=== PATIENT | female | born 1935 | race Caucasian/White ===

== ENCOUNTER 2016-12-16 11:58 | Inpatient (IN) ==
--- NOTE | 2016-12-16 12:24 | Emergency Department Report ---
SOB HPI - General Chief Complaint: Shortness of Breath/Dyspnea Stated Complaint: poss pneumonia Time Seen by Provider: 12/16/16 12:15 Source: patient, family Mode of arrival: wheelchair Limitations: no limitations - History of Present Illness Patient was transferred from [facility] where she presented this morning with shortness of air. Oxygen saturations were noted to be in the mid 80s on patient's baseline 2 L of nasal cannula. She has had some generalized respiratory issues for the last 2 weeks. She does have chronic respiratory insufficiency secondary to severe scoliosis. Patient does deny any history of COPD or asthma. Patient is brought in by her daughter and does appear dyspneic. Saturations on 4 L per nasal cannula are in upper 80s. Patient was placed on 5 L per nasal cannula and allowed to sit at the side of the bed and oxygen saturations were mid 90s Patient is visiting her daughter who lives in [place] and is from . She has been in [place] visiting her son and did just fly in last night. She does report productive cough ; yellow sputum but also reports occasional blood in her sputum. Denies pleuritic chest pain or recent pain or swelling in her legs. No history of DVT or PE. She denies chest pain but does complain of SOA and chest tightness. Patients lead mechanical engineer is Dr Lee in [place]. She denies any hx of [place] or stents but states she has by history a fast heart rate that is controlled with medication. Patient is very short stature and has pronounced spinal curvature due to her scoliosis. Patient states due to her scoliosis, she can either lay flat on the bed or sit completely upright, but remaining in bed with the head elevated is not tolerated. Denies fever or chills. Temerature here is 99.3. Patient states she did just finish 10 days of keflex on Wednesday that she was taking due to a URI. Complaint: shortness of breath, cough Onset (ago): week(s) (2) - Related Data Home Medications Medication Instructions Recorded Confirmed Furosemide [Lasix] 10 - 20 mg PO DAILY PRN 12/16/16 12/16/16 Hydrocodone/APAP 10325 [[place] 1 tab PO Q6H PRN 12/16/16 12/16/16 10/325] Levothyroxine Sodium 150 mcg PO ACB 12/16/16 12/16/16 dilTIAZem HCl [Diltiazem ER] 180 mg PO BID 12/16/16 12/16/16 Allergies Allergy/AdvReac Type Severity Reaction Status Date / Time diphenhydramine Allergy Verified 12/16/16 12:16 [From Benadryl] erythromycin base Allergy Swelling Verified 12/16/16 12:16 of Lip/Tongue/Throat Penicillins Allergy Rash Verified 12/16/16 12:16 Tetracyclines Allergy Rash Verified 12/16/16 12:16 Review of Systems All systems: reviewed and negative except as stated Constitutional: Reports: as per HPI, weakness. Denies: fever, chills Eyes: Denies: eye pain, eye discharge ENT: Denies: ear pain, throat pain Cardiovascular: Reports: as per HPI, dyspnea on exertion Respiratory: Reports: as per HPI, cough, dyspnea, wheezes, hemoptysis Gastrointestinal: Reports: as per HPI. Denies: nausea, vomiting Genitourinary: Denies: urgency, dysuria Musculoskeletal: Reports: as per HPI, back pain, other (severe scoliosis ). Denies: joint swelling Neurological: Denies: headache, weakness, numbness, paresthesias Endocrine: Denies: heat or cold intolerance Hematological/Lymphatic: Denies: easy bleeding, easy bruising Allergic/Immunologic: Denies: facial swelling, urticaria PFSH Patient Stated Medical History Bronchitis Yes Pneumonia Yes Clinic Medical History Community acquired pneumonia (Acute Medical) Physical Exam - Limitations Limitations: no limitations - General General appearance: alert - Normal Exams: Head:: Normocephalic without trauma Eyes:: Pupils are PERRLA w/ EOMI, No scleral icterus, irritation, or foreign bodies noted ENMT:: No facial trauma, nasal exudates, pharyngeal erythema, or exudates are noted Neck:: Full range of motion, without adenopathy, JVD, bruits or thyromegaly Cardiovascular:: Regular rate and rhythm, without murmur or gallop, Pulses 2+ all extremities, capillary refill, <2 seconds all extremities Abdomen:: Bowel sounds positive, soft, non-tender, non-distended Lymphatic:: No lymphadenopathy Integumentary:: No rashes, hives Neurological:: Patient is alert, and oriented, cranial nerves, motor/sensory/ cerebellar, exams w/o gross deficits Psychiatric:: Patient exhibits, appropriate attention, emotion and affect - Expanded Respiratory Exam Location: Left: wheezes, rhonchi, Right: wheezes, Upper: rhonchi - Cardiovascular Cardiovascular exam: Present: regular rate Course - Consultations Consultation #1: Dr Knowles Time: 14:44 (will admit ) Vital Signs Pulse Oximetry 88 L 12/16/16 12:00 Temperature 99.3 F 12/16/16 12:16 Pulse Rate 75 12/16/16 14:03 Respiratory Rate 24 12/16/16 13:05 Blood Pressure 113/59 12/16/16 14:03 Pulse Oximetry 97 12/16/16 14:12 Shortness of Breath/Dyspnea - MDM Narrative Medical decision making narrative: Patients CT scan ruled out PE ; did dx left upper lobe pneumonia. Patient is tolerating oxygen at 4L/NC with sats 94% . - Differential Diagnosis Likely: congestive heart failure, community acquired pneumonia, pulmonary embolism - Medical Records Attestation: I reviewed the patient's medical records. - Lab Data Attestation: I reviewed the patient's lab results. Result diagrams: 12/16/16 12:44 12/16/16 12:44 Lab Results 12/16/16 12/16/16 12/16/16 Range/Units 12:44 12:44 12:44 WBC 7.7 (4.5-11.0) T/MM3 RBC 4.21 (4.00-5.20) M/MM3 Hgb 10.3 L (12-16) GM/DL Hct 36.3 (36-46) % MCV 86.2 (80-100) UM3 MCH 24.5 L (26-34) UUG MCHC 28.4 L (31-37) GM/DL RDW Std Deviation 43.7 (36.9-50.2) FL Plt Count 206 (130-400) T/MM3 MPV 10.9 (9.4-12.4) UM3 Immature Gran % (Auto) 0.3 (0.0-0.5) % Neut % (Auto) 77.4 H (33-66) % Lymph % (Auto) 13.0 L (23-45) % [place] % (Auto) 8.8 (0-9.0) % Eos % (Auto) 0.4 (0-4) % Baso % (Auto) 0.1 (0-2) % Neut # (Auto) 6.0 (1.8-7.7) T/MM3 Lymph # (Auto) 1.0 (1-4.8) T/MM3 [place] # (Auto) 0.7 (0-0.8) T/MM3 Eos # (Auto) 0.0 (0-0.5) T/MM3 Baso # (Auto) 0.0 (0-0.2) T/MM3 Abs Immat Gran (auto) 0.02 (0.00-0.03) T/MM3 D-Dimer 439 H (0-230) NG/ML ABG pH (7.350-7.450) ABG pCO2 (34-45) MMHG ABG pO2 (80-100) MMHG ABG HCO3 (22-26) MEQ/L ABG Total CO2 (23-27) MEQ/L ABG O2 Saturation (95.0-98.0) % ABG Base Excess (-2.0-2.0) MMOL/L O2 Delivery Method FiO2 (liters per min) Turbidity < 20 (0-20) Sodium 145 H (134-144) MEQ/L Potassium 4.4 (3.6-5) MEQ/L Chloride 97 L (98-107) MEQ/L Carbon Dioxide 42 H* (22-30) MEQ/L Anion Gap 6 (5-15) MEQ/L BUN 13.0 (7-17) MG/DL Creatinine 0.5 L (0.7-1.2) MG/DL GFR Calculation 118 BUN/Creatinine Ratio 26 (6-26) RATIO Glucose 109 (65-110) MG/DL Calculated Osmolality 280 (261-280) MOSM/KG Calcium 9.3 (8.4-10.2) MG/DL Total Bilirubin 0.30 (0.20-1.30) MG/DL Icterus Index < 2 (0-7) AST 24 (14-36) U/L ALT 49 (9-52) U/L Alkaline Phosphatase 63 (38-126) U/L Troponin I < 0.012 (0-0.12) ng/ml B-Natriuretic Peptide 354 H (0-175) pg/mL Total Protein 6.7 (6.3-8.2) G/DL Albumin 3.7 (3.5-5.0) G/DL Globulin 3.0 (2.4-3.6) G/DL Albumin/Globulin Ratio 1.2 (1.1-2.2) RATIO Plasma Lactate 0.8 (0.6-2.2) MMOL/L Procalcitonin NG/ML Specimen Hemolysis < 15 (0-25) 12/16/16 12/16/16 Range/Units 12:55 12:57 WBC (4.5-11.0) T/MM3 RBC (4.00-5.20) M/MM3 Hgb (12-16) GM/DL Hct (36-46) % MCV (80-100) UM3 MCH (26-34) UUG MCHC (31-37) GM/DL RDW Std Deviation (36.9-50.2) FL Plt Count (130-400) T/MM3 MPV (9.4-12.4) UM3 Immature Gran % (Auto) (0.0-0.5) % Neut % (Auto) (33-66) % Lymph % (Auto) (23-45) % [place] % (Auto) (0-9.0) % Eos % (Auto) (0-4) % Baso % (Auto) (0-2) % Neut # (Auto) (1.8-7.7) T/MM3 Lymph # (Auto) (1-4.8) T/MM3 [place] # (Auto) (0-0.8) T/MM3 Eos # (Auto) (0-0.5) T/MM3 Baso # (Auto) (0-0.2) T/MM3 Abs Immat Gran (auto) (0.00-0.03) T/MM3 D-Dimer (0-230) NG/ML ABG pH 7.380 (7.350-7.450) ABG pCO2 78 H* (34-45) MMHG ABG pO2 126 H (80-100) MMHG ABG HCO3 46 H (22-26) MEQ/L ABG Total CO2 48.5 H (23-27) MEQ/L ABG O2 Saturation 99.0 H (95.0-98.0) % ABG Base Excess 17.2 H (-2.0-2.0) MMOL/L O2 Delivery Method Nasal cannula, liter FiO2 (liters per min) 5 Turbidity (0-20) Sodium (134-144) MEQ/L Potassium (3.6-5) MEQ/L Chloride (98-107) MEQ/L Carbon Dioxide (22-30) MEQ/L Anion Gap (5-15) MEQ/L BUN (7-17) MG/DL Creatinine (0.7-1.2) MG/DL GFR Calculation BUN/Creatinine Ratio (6-26) RATIO Glucose (65-110) MG/DL Calculated Osmolality (261-280) MOSM/KG Calcium (8.4-10.2) MG/DL Total Bilirubin (0.20-1.30) MG/DL Icterus Index (0-7) AST (14-36) U/L ALT (9-52) U/L Alkaline Phosphatase (38-126) U/L Troponin I (0-0.12) ng/ml B-Natriuretic Peptide (0-175) pg/mL Total Protein (6.3-8.2) G/DL Albumin (3.5-5.0) G/DL Globulin (2.4-3.6) G/DL Albumin/Globulin Ratio (1.1-2.2) RATIO Plasma Lactate (0.6-2.2) MMOL/L Procalcitonin 0.13 NG/ML Specimen Hemolysis (0-25) Disposition Clinical Impression: Community acquired pneumonia Disposition: 02 To [facility] [place] Acute Care Condition: Stable Prescriptions: No Action dilTIAZem HCl [Diltiazem ER] 180 mg PO BID Furosemide [Lasix] 10 - 20 mg PO DAILY PRN PRN Reason: Prn Orders Hydrocodone/APAP 10/325 [[place] 10/325] 1 tab PO Q6H PRN PRN Reason: Pain Levothyroxine Sodium 150 mcg PO ACB Time of Disposition: 14:38 - Seen By: estela
[2016-12-16] MEDS ORDERED: ALBUTEROL/IPRATROPIUM 2.5mg-0.5mg/3ml NEB AEROSOL ONE (12:38)
[2016-12-16] MEDS ORDERED: SALINE FLUSH 10ml SYRINGE ONE ×2 (13:39→13:52)
[2016-12-16] MEDS ORDERED: NS 100 ML ONE (13:39)
[2016-12-16] MEDS ORDERED: IOHEXOL 350mg/ml 75ml INJECTION ONE (13:39)
[2016-12-16] MEDS ORDERED: IOHEXOL 350mg/ml 50ml INJECTION ONE (13:51)
--- OUTSIDE RECORDS SUMMARY | 2016-12-16 14:02 | External Medical Summary ---
:1935 Author Organization eClinicalWorks Care Team Providers Name Role Phone Bijan Alvarez Provider Role Unavailable Allergies No Known Allergies Problems Problem Type Condition Code Onset Dates Condition Status Assessment Left thyroid nodule E04.1 Active Medications Medication Code Code Instructions Start End Status Dosage System Date Date [place] 3 [facility] [address]-01 1000 MG Orally 1 capsule 950 [place] [address]-40 12.5 MG Orally 1 tablet ER 82-11 Once a day [place] [address]-90 75 MCG Orally 1 tablet Sodium 55-00 [place] [address]-10 10 MG Orally 1 tablet 57-30 Three times a day PRN Calcium + [place] [address]-46 600-200 MG-UNIT not 56-52 [place] [address]-43 10-325 MG Orally 1 tablet nophen 16-30 every 6 hrs as needed Diltiazem CD [facility] 737[address]-64 180 MG Orally 1 capsule 84-10 Two times daily Procedures Procedure Coding System Code Date US EXAM OF HEAD AND NECK CPT-4 02801 Jan 23, 2015 Results No Known Results Summary Purpose eClinicalWorks Submission
--- OUTSIDE RECORDS SUMMARY | 2016-12-16 14:02 | External Medical Summary ---
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 Assessment Thyroid cancer C73 Active Medications Medication Code Code Instructions Start End Date Status Dosage System Date Calcium + D3 [facility] 546[address]-58 600-200 MG-UNIT not 56-52 Orally defined [place] [address]-40 1000 MG Orally 1 capsule 950 [place] [address]-56 10-325 MG Orally 1 tablet minophen 16-30 every 6 [place] [address]-78 100 MCG Orally 1 tablet Sodium 09-01 Once a day Diltiazem CD [facility] [address]-43 180 MG Orally 1 capsule 84-10 [place] [address]-44 20 MG Orally 1 tablet 97-25 Once a day Procedures Procedure Coding System Code Date Office Visit, Est Pt., Level 4 CPT-4 84942 August 22, 2015 [facility] MED/CURRENT MED MERGE CPT-4 1111F August 22, 2015 Billed by outside source CPT-4 NOBLL August 22, 2015 Vital Signs Date/Time: August 22, 2015 Blood Pressure Systolic 164 mm Hg Weight 175.2 lbs Height 59 in Oximetry 96 % Respiratory Rate 20 /min Cardiac Monitoring Heart Rate 76 /min Blood Pressure Diastolic 96 mm Hg BMI 35.38 Index Results No Known Results Summary Purpose eClinicalWorks Submission
--- OUTSIDE RECORDS SUMMARY | 2016-12-16 14:02 | External Medical Summary ---
:1935 Author Organization [facility] Address [address] [place] [phone] Care Team Providers Name Role Phone Bijan Alvarez Unavailable Unavailable PROBLEMS Type Condition ICD9-CM Code [id number] Code Onset Condition SNOMED Code Dates Status Problem Hypothyroidism E03.9 Active 35116992 Problem Thyroid cancer C73 Active 356366190 Assessment Hypothyroidism E03.9 Apr, Active 73679215 2017 ALLERGIES Unknown Allergies SOCIAL HISTORY No smoking Hx information available PLAN OF CARE VITAL SIGNS MEDICATIONS Medication Instructions Dosage Frequency Start End Duration Status Date Date [place] 3 1000 MG Orally Once a 1 capsule 24h Active day Furosemide 20 MG Orally Once a 1 tablet Active day as needed Levothyroxine Orally once a 1 tablet 24h 30 days Active Sodium 125 MCG day Once a day Orally 30 days Calcium + D3 Active 600-200 MG-UNIT Hydrocodone-Aceta Orally every 6 1 tablet as 6h Active minophen 10-325 hrs needed MG Diltiazem CD 180 Orally Two times 1 capsule Active MG daily RESULTS No Results PROCEDURES No Known procedures IMMUNIZATIONS No Known Immunizations
--- OUTSIDE RECORDS SUMMARY | 2016-12-16 14:02 | External Medical Summary ---
:1935 Author Organization eClinicalWorks Care Team Providers Name Role Phone Bijan Alvarez Provider Role Unavailable Allergies No Known Allergies Problems Problem Type Condition Code Onset Dates Condition Status Assessment Thyroid cancer C73 Active Assessment Hypothyroidism E03.9 Active Medications Medication Code Code Instructions Start End Date Status Dosage System Date Hydrocodone-Aceta [facility] 85685-35 10-325 MG Orally 1 tablet minophen 16-30 every 6 hrs as needed [place] 3 [facility] [address]-47 1000 MG Orally 1 capsule 950 Once a day Calcium + D3 [facility] 16971-92 600-200 MG-UNIT not 56-52 Orally defined Diltiazem CD [facility] 028[address]-57 180 MG Orally 1 capsule 84-10 Two times daily Levothyroxine [facility] 27934-91 112 MCG Orally 1 tablet Sodium 11-01 Once a day Furosemide [facility] 12714-99 20 MG Orally 1 tablet 97-25 Once a day Results No Known Results Summary Purpose eClinicalWorks Submission
--- OUTSIDE RECORDS SUMMARY | 2016-12-16 14:02 | External Medical Summary ---
:1935 Author Organization [facility] Address [address] [place] [phone] Care Team Providers Name Role Phone Bijan Alvarez Unavailable Unavailable PROBLEMS Type Condition ICD9-CM Code LCB05-DU Code Onset Condition SNOMED Code Dates Status Problem Hypothyroidism E03.9 Active 83846569 Problem Thyroid cancer C73 Active 708634599 Assessment Hypothyroidism E03.9 Apr, Active 25472218 2017 ALLERGIES Unknown Allergies SOCIAL HISTORY No smoking Hx information available PLAN OF CARE VITAL SIGNS MEDICATIONS Medication Instructions Dosage Frequency Start End Duration Status Date Date Diltiazem CD 180 Orally Two times 1 capsule Active MG daily Levothyroxine Orally once a 1 tablet 24h 30 days Active Sodium 125 MCG day Once a day Orally 30 days Hydrocodone-Aceta Orally every 6 1 tablet as 6h Active minophen 10-325 hrs needed MG Calcium + D3 Active 600-200 MG-UNIT [place] 3 1000 MG Orally Once a 1 capsule 24h Active day Furosemide 20 MG Orally Once a 1 tablet Active day as needed RESULTS No Results PROCEDURES No Known procedures IMMUNIZATIONS No Known Immunizations
--- OUTSIDE RECORDS SUMMARY | 2016-12-16 14:02 | External Medical Summary ---
:1935 Author Organization [facility] Address [address] [phone] Care Team Providers Name Role Phone Bijan Alvarez Unavailable Unavailable PROBLEMS Type Condition ICD9-CM LWK46-WT Onset Condition SNOMED Code Code Code Dates Status Assessment Thyroid cancer C73 Apr, Active 700948731 2017 Assessment Post-surgical E89.0 Apr, Active 20158734 hypothyroidism 2017 Assessment Status post E89.0 Apr, Active 12155599 thyroidectomy 2017 ALLERGIES Substance Reaction Event Type Date Status Tetracycline HCl anaphylaxis Drug Allergy Apr, Active Sulfacet-R anaphylaxis Drug Allergy Apr, Active Penicillin G Benzathine anaphylaxis Drug Allergy Apr, Active Erythromycin anaphylaxis Drug Allergy Apr, Active Benadryl anaphylaxis Drug Allergy Apr, Active SOCIAL HISTORY No smoking Hx information available PLAN OF CARE Activity Details Pending Test T4, FREE 48502 Pending Test TSH 20865 Pending Test THYROID CANCER MONITORING (THYROGLOBULIN) 81851 6 Months,Reason: VITAL SIGNS Height 59 in 2016-04-20 Weight 177.6 lbs 2016-04-20 Heart Rate 82 /min 2016-04-20 Respiratory Rate 22 /min 2016-04-20 BMI 35.87 kg/m2 2016-04-20 Blood pressure systolic 150 mm Hg 2016-04-20 Blood pressure diastolic 80 mm Hg 2016-04-20 MEDICATIONS Medication Instructions Dosage Frequency Start End Duration Status Date Date Diltiazem CD 180 Orally Two times 1 capsule Active MG daily [place] 3 1000 MG Orally Once a 1 capsule 24h Active day Hydrocodone-Aceta Orally every 6 1 tablet as 6h Active minophen 10-325 hrs needed MG Furosemide 20 MG Orally Once a 1 tablet Active day as needed Levothyroxine 1 tablet 30 Active Sodium 112 MCG Once a day Orally 30 days Calcium + D3 Active 600-200 MG-UNIT RESULTS No Results PROCEDURES Procedure Date Ordered Related Diagnosis Body Site Billed by outside source April 20, 2016 Office Visit, Est Pt., Level 3 April 20, 2016 [facility] MED/CURRENT MED MERGE April 20, 2016 IMMUNIZATIONS No Known Immunizations
--- OUTSIDE RECORDS SUMMARY | 2016-12-16 14:02 | External Medical Summary ---
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 Assessment Hypothyroidism E03.9 Active Medications Medication Code Code Instructions Start End Status Dosage System Date Date Calcium + D3 [facility] 46680-29 600-200 MG-UNIT not 56-52 Orally defined Cyclobenzaprine HCl [facility] 35627-52 10 MG Orally 1 tablet 57-30 Three times a day PRN Diltiazem CD [facility] 912[address]-42 180 MG Orally 1 capsule 84-10 Two [place] [address]-78 10-325 MG Orally 1 tablet nophen 16-30 every 6 hrs [place] [address]-77 12.5 MG Orally 1 tablet ER 82-11 Once a day at bedtime as needed [place] 3 [facility] 11[address]-26 1000 MG Orally 1 capsule 950 Once a day Levothyroxine [facility] 048[address]-36 75 MCG Orally 1 tablet Sodium 55-00 Once a day Procedures Procedure Coding System Code Date Office Visit, New Pt., Level 4 CPT-4 78633 Nov 30, 2014 [facility] MED/CURRENT MED MERGE CPT-4 1111F Nov 30, 2014 Billed by outside source CPT-4 NOBLL Nov 30, 2014 Vital Signs Date/Time: Nov 30, 2014 Blood Pressure Systolic 122 mm Hg Weight 164.8 lbs Height 59 in BMI 33.28 Index Cardiac Monitoring Heart Rate 76 /min Blood Pressure Diastolic 60 mm Hg Results Name Result Date Reference Range Unit Abnormality Flag Thyroid-Stimulating Hormone (TSH) and Free T4 [id number] Summary Purpose eClinicalWorks Submission
--- OUTSIDE RECORDS SUMMARY | 2016-12-16 14:02 | External Medical Summary | Referral Summary ---
:1935 Author Organization [facility] Address [address] [place] [address] Care Team Providers Name Role Phone Timothy Garcia Primary Care Physician Encounter VC Date(s): 07/12/15 - 07/12/15 [facility] [address] [place] [address] [phone] Discharge Disposition: 01-Home or Self Care Attending Physician: Justin Duong MD Vital Signs No data available for this section Problem List Condition Effective Dates Status Health Status Informant Obesity(Confirmed) Active patient Allergies, Adverse Reactions, Alerts Substance Reaction Severity Status diphenhydrAMINE Active erythromycin Active ethanol Active penicillin Active sulfamethoxazole Active zinc acetate Active Medications Ambien CR 12.5 mg oral tablet, extended release 12.5 mg 1 tabs, Oral, Bedtime (once a day), as needed for sleep, 0 Refill(s) Start Date: 09/21/14 Status: Orderedcyclobenzaprine 10 mg oral tablet 10 mg 1 tabs, Oral, TID, as needed for spasm, # 30 tabs, 0 Refill(s) Start Date: 09/21/14 Status: Ordereddiltiazem 0 Refill(s) Start Date: 09/21/14 Status: Orderedfurosemide 20 mg oral tablet mg tabs, Oral, Daily, 0 Refill(s) Start Date: 09/21/14 Status: OrderedHYDROcodone-ibuprofen 10 mg-200 mg oral tablet tabs, Oral, q4hr, 0 Refill(s) Start Date: 09/21/14 Status: Orderedlevothyroxine 75 mcg (0.075 mg) oral tablet mcg tabs, Oral, Daily, 0 Refill(s) Start Date: 8/7/15 Status: Orderedtemazepam Oral, Bedtime (once a day), 0 Refill(s) Start Date: 09/21/14 Status: Ordered Results No data available for this section Immunizations No data available for this section Procedures No data available for this section Social History Social History Type Response Smoking Status Never smoker Assessment and Plan No data available for this section
--- OUTSIDE RECORDS SUMMARY | 2016-12-16 14:02 | External Medical Summary | Referral Summary ---
:1935 Author Organization [facility] Address [address] [place] [address] Care Team Providers Name Role Phone Timothy Garcia Primary Care Physician Encounter [facility] [phone] Date(s): 09/21/14 - 09/21/14 [facility] [address] [place] [address] - us Discharge Diagnosis: Adult hypothyroidism Discharge Diagnosis: Thyroid nodule Discharge Disposition: -Home or Self Care Attending Physician: Marilee Martinez MD Admitting Physician: Marilee Martinez MD Referring Physician: Marilee Martinez MD Vital Signs Most recent to oldest [Reference Range]: 1 Peripheral Pulse Rate [60-100 bpm] 84 bpm (09/21/14 1:15 PM) Blood Pressure [90-140/60-90 mmHg] 104/64 mmHg (09/21/14 1:15 PM) Problem List Condition Effective Dates Status Health [...] Daily, 0 Refill(s) Start Date: 09/21/14 Status: Orderedtemazepam Oral, Bedtime (once a day), 0 Refill(s) Start Date: 09/21/14 Status: Ordered Results Chemistry Most recent to oldest [Reference Range]: 1 T4 Free [0.7-1.5 ng/dL] 1.0 ng/dL (09/21/14 1:49 PM) TSH [0.35-4.94] 3.18 (09/21/14 1:49 PM) Immunizations No data available for this section Procedures No data available for this section Social History Social History Type Response Smoking Status Never smoker Assessment and Plan Extracted from: Title: Ambulatory Patient Education Author: Marilee Martinez MD Date: 09/22/14 Family Medicine Hypothyroidism The thyroid is a large gland located in the lower front of your neck. The thyroid gland helps control metabolism. Metabolism is how your body handles food. It controls metabolism with the hormone thyrox ine. When this gland is underactive (hypothyroid), it produces too little hormone. CAUSES These include: Absence or destruction of thyroid tissue. Goiter due to iodine deficiency. Goiter due to medications. Congenital defects (since ). Problems with the pituitary. This causes a lack of TSH (thyroid stimulating hormone). 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 SYMPTOMS Lethargy (feeling as though you have no energy) Cold intolerance Weight gain (in spite of normal food intake) Dry skin Coarse hair Menstrual irregularity (if severe, may lead to infertility) Slowing of thought processes Cardiac problems are also caused by insufficient amounts of thyroid hormone. Hypothyroidism in the is cretinism, and is an extreme form. It is important that this form be treated adequately and immediately or it will lead rapidly to retarded physical and mental development. DIAGNOSIS To prove hypothyroidism, your caregiver may do blood tests and ultrasound tests. Sometimes the signs are hidden. It may be necessary for your caregiver to watch this illness with blood tests either before or after diagnosis and treatment. TREATMENT Low levels of thyroid hormone are increased by using synthetic thyroid hormone. This is a safe, effective treatment. It usually takes about four weeks to gain the full effects of the medication. After y ou have the full effect of the medication, it will generally take another four weeks for problems to leave. Your caregiver may start you on low doses. If you have had heart problems the dose may be grad ually increased. It is generally not an emergency to get rapidly to normal. HOME CARE INSTRUCTIONS Take your medications as your caregiver suggests. Let your caregiver know of any medications you are taking or start taking. Your caregiver will help you with dosage schedules. As your condition improves, your dosage needs may increase. It will be necessary to have continuing blood tests as suggested by your caregiver. Report all suspected medication side effects to your caregiver. SEEK MEDICAL CARE IF: Seek medical care if you develop: Sweating. Tremulousness (tremors). Anxiety. Rapid weight loss. Heat intolerance. Emotional swings. Diarrhea. Weakness. SEEK IMMEDIATE MEDICAL CARE IF: You develop chest pain, an irregular heart beat (palpitations), or a rapid heart beat. MAKE SURE YOU: Understand these instructions. Will watch your condition. Will get help right away if you are not doing well or get worse. Document Released: 02/01/2006 Document Revised: 04/25/2012 Document Reviewed: 09/21/2008 ExitCare Patient Information 2015 [place]. This information is not intended to replace advice given to you by your health care provider. Make sure you discuss any questions you have with your health care provider. No follow up information was provided. Extracted from: Title: Consult Note Author: Marilee Martinez MD Date: 09/21/14 Assessment/Plan Adult hypothyroidism discussed labs with patient will check tfts today will adjust levothyroxine accordingly thyroid nodule s/p benign biopsy in 2013 will repeat u/s now ( patient to get it done in [place] where she lives) will decide on further management accordingly
--- OUTSIDE RECORDS SUMMARY | 2016-12-16 14:02 | External Medical Summary | Continuity of Care Document ---
:1935 Author Organization [facility] Allergies Active Description Code Type Severity Reaction Onset Reported/ Identified Relationship Clinical to Patient Status Yes diphenhydram Drug Moderate 06/14/2009 ine HCl Aller gy Yes diphenhydram F0000 Drug Moderate N/A 06/14/2009 ine HCl 87193 Aller gy Yes Erythromycin Drug Moderate 06/14/2009 Base Aller gy Yes Erythromycin F0060 Drug Moderate N/A 06/14/2009 Base 60989 Aller gy Yes Penicillins Drug Moderate 06/14/2009 Aller gy Yes Penicillins F0010 Drug Moderate N/A 06/14/2009 35176 Aller gy Yes Sulfa Drug Moderate 06/14/2009 (Sulfonamide Aller Antibiotics) gy Yes Sulfa F0010 Drug Moderate N/A 06/14/2009 (Sulfonamide 77664 Aller Antibiotics) gy Yes Tetracycline Drug Moderate 06/14/2009 Aller gy Yes Tetracycline F0060 Drug Moderate N/A 06/14/2009 98143 Aller gy Yes erythromycin eryth Drug Mild TONGUE 05/10/2015 base romyc Aller SWELLS in gy AND RASH base Yes PENCILLIN PENCI Drug Mild RASH AND 05/10/2015 LLIN Aller TONGUE gy SWELLS Yes tetracycline tetra Drug Mild RASH AND 05/10/2015 cycli Aller TONGUE ne gy SWELLED Yes Sulfa Sulfa Drug Unknown . 05/10/2015 (Sulfonamide (Sulf Aller Antibiotics) onami gy de Antib iotic s) Medications Problems Procedures Results Test Result Range PARATHYROID HORMONE (INTACT) - 05/13/15 10:49 PARATHYROID HORMONE (INTACT) 56 pg/mL 14-85 Encounters ACCT Visit Discharge Status Pt. Type Provider Facility Loc./Unit Complaint No. Date/Time [id number] 05/13/2015 05/14/2015 DIS Outpatient Yue STOUT, Morte[facility] GroveOPRA [id number] 05:01:00 14:58:00 [facility] [id number] 10/28/2014 10/28/2014 CLS Outpatient Jes Perry HMG.WALKIN [id number] 12:00:00 23:59:59 Umair Bauer [facility] [id number] 03/19/2014 03/19/2014 CLS Outpatient Jesseemmanuel Jes IMG.HO.RAD [id number] 14:31:00 23:59:59 Robert STOUT [facility] [id number] 05/23/2012 05/23/2012 CLS Outpatient Jes MasseyELEY [id number] 11:36:00 23:59:59 Rachelle Briscoe [facility] [id number] 06/05/2009 06/05/2009 CLS Outpatient Trudy STOUT, Jes TANNERIN [id number] 10:15:00 23:59:59 Raj Dominguez [facility]
--- OUTSIDE RECORDS SUMMARY | 2016-12-16 14:02 | External Medical Summary ---
:1935 Author Organization [facility] Address [address] [place] [id number] Care Team Providers Name Role Phone Bijan Alvarez Unavailable Unavailable PROBLEMS Type Condition ICD9-CM Code [id number] Code Onset Condition SNOMED Code Dates Status Problem Hypothyroidism E03.9 Active 92256867 Problem Thyroid cancer C73 Active 197266046 ALLERGIES No Information SOCIAL HISTORY Never Assessed PLAN OF CARE VITAL SIGNS MEDICATIONS Medication Instructions Dosage Frequency Start End Duration Status Date Date Diltiazem CD 180 Orally Two times 1 capsule Active MG daily Levothyroxine Orally once a 1 tablet 24h 30 days Active Sodium 150 MCG day Furosemide 20 MG Orally Once a 1 tablet Active day as needed Hydrocodone-Aceta Orally every 6 1 tablet as 6h Active minophen 10-325 hrs needed MG [place] 3 1000 MG Orally Once a 1 capsule 24h Active day RESULTS No Results PROCEDURES No Known procedures IMMUNIZATIONS No Known Immunizations MEDICAL (GENERAL) HISTORY Type Description Date Medical History Hypothyroidism Medical History A-fib Medical History Thyroid nodule Surgical History appendectomy Surgical History x4 Surgical History Facial reconstruction (cheek) Surgical History Thyroidectomy 04/2015 Surgical History tonsillectomy
--- OUTSIDE RECORDS SUMMARY | 2016-12-16 14:02 | External Medical Summary ---
:1935 Author Organization [facility] Address [address] [place] [phone] Care Team Providers Name Role Phone Bijan Alvarez Unavailable Unavailable PROBLEMS Type Condition ICD9-CM Code [id number] Code Onset Condition SNOMED Code Dates Status Problem Hypothyroidism E03.9 Active 75291978 Problem Thyroid cancer C73 Active [id number] ALLERGIES Substance Reaction Event Type Date Status Tetracycline HCl anaphylaxis Drug Allergy Oct, Active Sulfacet-R anaphylaxis Drug Allergy Oct, Active Penicillin G Benzathine anaphylaxis Drug Allergy Oct, Active Erythromycin anaphylaxis Drug Allergy Oct, Active Benadryl anaphylaxis Drug Allergy Oct, Active SOCIAL HISTORY Never Assessed PLAN OF CARE Activity Details Follow Up 1 Year Reason: Pending Test T4, FREE 08321 Pending Test TSH 98272 Pending Test THYROID CANCER MONITORING (THYROGLOBULIN) 61104 Pending Test Ultrasound : Thyroid,parathyroid, parotid,soft tissues of head and neck , real time with image documentation VITAL SIGNS Height 59 in 2016-11-04 Weight 170.8 lbs 2016-11-04 Heart Rate 80 /min 2016-11-04 Respiratory Rate 18 /min 2016-11-04 Oximetry 94 % 2016-11-04 BMI 34.49 kg/m2 2016-11-04 Blood pressure systolic 126 mm Hg 2016-11-04 Blood pressure diastolic 68 mm Hg 2016-11-04 MEDICATIONS Medication Instructions Dosage Frequency Start End Duration Status Date Date Diltiazem CD 180 Orally Two times 1 capsule Active MG daily Hydrocodone-Aceta Orally every 6 1 tablet as 6h Active minophen 10-325 hrs needed MG [place] 3 1000 MG Orally Once a 1 capsule 24h Active day Levothyroxine 1 tablet 30 Active Sodium 125 MCG Once a day Orally 30 days once a day Orally 30 days Furosemide 20 MG Orally Once a 1 tablet Active day as needed RESULTS No Results PROCEDURES Procedure Date Ordered Result Body Site Billed by outside source Nov 04, 2016 US EXAM OF HEAD AND NECK Nov 04, 2016 DSCG MED/CURRENT MED MERGE Nov 04, 2016 IMMUNIZATIONS No Known Immunizations MEDICAL (GENERAL) HISTORY Type Description Date Medical History Hypothyroidism Medical History A-fib Medical History Thyroid nodule Surgical History appendectomy Surgical History x4 Surgical History Facial reconstruction (cheek) Surgical History Thyroidectomy 04/2015 Surgical History tonsillectomy
--- NOTE | 2016-12-16 14:22 | CT Scan Report ---
Indication: hypoxia, dyspnea, elevated D dimer PROCEDURE: CT angio pulm emboli: Encounter: Initial Comparison: None Technique: Axial CT pulmonary angiographic phase images were performed through the chest after the administration of intravenous contrast. Coronal and Sagittal MIP reconstructed images were created and reviewed. Automated Exposure Control and Iterative Reconstruction dose reducing techniques were utilized. Contrast: Omnipaque 350 116 mL Findings: Pulmonary arteries: The main pulmonary artery is markedly enlarged measuring over 4.2 cm in diameter compared to 3.5 cm in diameter for the adjacent aorta. The left and right main pulmonary arteries are severely enlarged as well as. Exam is diagnostic to the subsegmental pulmonary arterial level. No filling defects identified to suggest a pulmonary embolus. Impression: Significantly distorted anatomy due to severe rotoscoliosis of the thoracolumbar spine. There is consolidation within the left upper lobe containing air bronchograms. Minimal right basilar atelectasis also. No pneumothorax. Trace left effusion. Heart is enlarged without pericardial effusion. No axillary adenopathy. Large fat-containing lesion occupying the majority of the right breast measuring over 10.2 x 7.5 cm in diameter on sagittal image #110. Recommend correlation for any history of prior breast procedure. The upper abdomen shows a moderately distended gallbladder. No acute findings seen in the upper abdomen. Impression: 1. No pulmonary embolus. 2. Left upper lobe pneumonia or aspiration. 3. Severe pulmonary artery hypertension. 4. Large fatty mass in the right breast could represent a lipoma or hamartoma. 5. Severe cardiomegaly. .
[2016-12-16] MEDS ORDERED: CEFTRIAXONE (ER USE ONLY) 1 GM in NS 100 ML IV ONE (14:32)
[2016-12-16] MEDS: SALINE FLUSH 10ml SYRINGE IVF PRN (14:38)
[2016-12-16] MEDS ORDERED: NS 1,000 ML IV SCH (14:45)
[2016-12-16] MEDS ORDERED: ALBUTEROL/IPRATROPIUM 2.5mg-0.5mg/3ml NEB AEROSOL PRN (15:17)
[2016-12-16] MEDS ORDERED: ACETAMINOPHEN 325 MG TABLET PO PRN (15:17)
[2016-12-16] MEDS ORDERED: PROMETHAZINE/CODEINE ORAL LIQUID 5ml PO PRN (15:17)
[2016-12-16] MEDS ORDERED: BISACODYL 10 MG SUPPOSITORY RECTALLY PRN (15:17)
[2016-12-16] MEDS ORDERED: MENTHOL COUGH DROPS (RICOLA) MM PRN (15:17)
[2016-12-16] MEDS ORDERED: ONDANSETRON 4 MG/2 ML INJECTION IVP PRN (15:17)
[2016-12-16] MEDS ORDERED: POLYETHYL GLYCOL 3350 17gm PACKET PO PRN (15:17)
--- NOTE | 2016-12-16 15:20 | History & Physical Report ---
<Magy Palacios V - Last Filed: 12/16/16 15:15> History of Present Illness Date: 12/16/16 Chief complaint: shortness of breath HPI: Patient is a pleasant 81-year-old female who is visiting her family in [place], [place]. She is from the [place], [place] area near [place]. She recently took a trip to [place] and flew here yesterday. It is reported that patient has recently completed a 10 day course of Keflex for upper respiratory infection. She began to feel more short of breath this morning. This presenting to [facility] at which time patient was found to be hypoxic in the mid 80s on her baseline oxygen of 2 liters by nasal cannula. She was then directed to the emergency room for further acute evaluation and treatment. CBC was essentially normal with a WBC count 7.7, hemoglobin 10.3, 7% neutrophils. Sodium was found be elevated at 145, potassium 4.4, CO2 42, BUN 13, creatinine 0.5. Troponin was negative, proBNP 354, venous lactate 0.8, pulse calcitonin 0.13. A d-dimer found to be elevated at 439. ABG revealed pH of 7.38, pCO2 78, pO2 126, bicarbonate 46 on 5 liters of oxygen by nasal cannula. CT scan of the chest was performed revealing a left upper lobe pneumonia, severe pulmonary artery hypertension. Severe cardiomegaly. No pulmonary emboli. Temperature on arrival 99.3, pulse in the 70s, patient is tachypneic at 28/min, she continues to be hypoxic requiring 4-5 liters of oxygen to maintain adequate saturations. Given her hypoxia, accompanied with failed outpatient, round of antibiotics and findings of pneumonia. The hospitalist services were contacted and accepted patient for inpatient admission for further evaluation and treatment. It is expected that her stay will be greater than 2 overnights. Review of Systems All systems PM: 10-point ROS was reviewed, no additional remarkable complaints except - Constitutional Constitutional: Present: fatigue - Respiratory Respiratory: Present: cough, dyspnea, excessive phlegm production [facility] Clinic Medical History Chronic oxygen dependence History of atrial fibrillation Severe scoliosis History of thyroid cancer Surgical History: 4. Appendectomy. Tonsillectomy. Thyroidectomy. Right facial surgery posttraumatic Family History: Father- at age 85 from heart disease. Mother lived till 97 - Social History Smoking status: Never smoker Substance use type: does not use Alcohol intake frequency: does not drink Housing: house Current occupational status: retired Social history: Patient resides independently in [facility] PCP Taylor Cantrell APRN in [facility] Medications Home Medications Medication Instructions Recorded Confirmed Type Furosemide [Lasix] 10 - 20 mg PO DAILY PRN 12/16/16 12/16/16 History Hydrocodone/APAP 10/325 [[place] 1 tab PO Q6H PRN 12/16/16 12/16/16 History 10/325] Levothyroxine Sodium 150 mcg PO ACB 12/16/16 12/16/16 History dilTIAZem HCl [Diltiazem ER] 180 mg PO BID 12/16/16 12/16/16 History Allergies Allergy/AdvReac Type Severity Reaction Status Date / Time diphenhydramine Allergy Verified 12/16/16 12:16 [From Benadryl] erythromycin base Allergy Swelling Verified 12/16/16 12:16 of Lip/Tongue/Throat Penicillins Allergy Rash Verified 12/16/16 12:16 Tetracyclines Allergy Rash Verified 12/16/16 12:16 Exam Vital Signs: Temperature 99.3 F 12/16/16 12:16 Pulse Rate 66 12/16/16 14:45 Respiratory Rate 28 H 12/16/16 14:45 Blood Pressure 115/55 12/16/16 14:45 Pulse Oximetry 96 12/16/16 14:45 Telemetry Rhythm: Sinus Rhythm - Constitutional Present: no acute distress, well nourished, well developed - Routine HEENT Exam Eye: Present: EOMI ENT: Present: mucous membranes moist, dentition normal - Routine Respiratory Exam Present: wheezes Comments: Coarse breath sounds bilaterally - Routine Cardiovascular Exam Present: RRR, S1, S2. Absent: murmur - Routine Abdominal Exam Present: soft, normoactive bowel sounds, non distended. Absent: tenderness - Routine Extremities Exam Present: normal capillary refill - Routine Skin Exam Present: intact, dry, warm - Routine Neurological Exam Present: alert, oriented X3, CN II-XII intact, moving all extremities - Routine Psychiatric Exam Present: normal affect, cooperative Results - Labs CBC & Chem 7: 12/16/16 12:44 12/16/16 12:44 Assessment and Plan (1) Community acquired pneumonia Current visit: Yes Status: Acute (2) Failure of outpatient treatment Current visit: Yes Status: Acute Assessment and Plan: Impression Community acquired pneumonia Failed outpatient treatment Hypernatremia- POA 145 Chronic oxygen dependence-2 liters Severe scoliosis Hx thyroid cancer Hx atrial fibrillation Plan Patient to inpatient status under care of Dr. Knowles for acne acquired pneumonia, failed outpatient treatment, increased oxygen demands. Patient completed a ten-day course of Keflex. She was given 1 gram of IV Rocephin in the emergency room. We will continue with IV Levaquin for antimicrobial coverage. Blood cultures are pending, will obtain a sputum culture. Given increased sputum production. Initial venous lactate was normal at 0.8. We will repeat these as per sepsis protocol. 1/2 NS at 75ml/hr for gentle hydration given hyponatremia- POA. DuoNeb breathing treatments 4 times a day, and a cappella. Medications reviewed. Will continue Cardizem, [place] and levothyroxine. At this time, will hold off on Lasix as patient is mildly dehydrated. Monitor cardiac telemetry given history of atrial fibrillation New oxygen to maintain adequate saturations. Patient's baseline oxygen is 2 liters. SCDs to bilateral lower extremity for DVT prophylaxis Recheck CBC and BMP tomorrow morning to follow blood counts, renal function and electrolytes Patient does request to be a DO NOT RESUSCITATE and this orders written Discharge medical care will return to PCP in [place], [place] DVT Prophylaxis: SCD's Resuscitation Status: Do Not Resuscitate Hospital Course Summary Disclaimer: The visit summary below is not to be considered part of the above Progress Note. Hospital Course: 12/16/16 Impression Community acquired pneumonia Failed outpatient treatment Hypernatremia- POA 145 Chronic oxygen dependence-2 liters Severe scoliosis Hx thyroid cancer Hx atrial fibrillation Plan Patient to inpatient status under care of Dr. Knowles for acne acquired pneumonia, failed outpatient treatment, increased oxygen demands. Patient completed a ten-day course of Keflex. She was given 1 gram of IV Rocephin in the emergency room. We will continue with IV Levaquin for antimicrobial coverage. Blood cultures are pending, will obtain a sputum culture. Given increased sputum production. Initial venous lactate was normal at 0.8. We will repeat these as per sepsis protocol. 1/2 NS at 75ml/hr for gentle hydration given hyponatremia- POA. DuoNeb breathing treatments 4 times a day, and a cappella. Medications reviewed. Will continue Cardizem, [place] and levothyroxine. At this time, will hold off on Lasix as patient is mildly dehydrated. Monitor cardiac telemetry given history of atrial fibrillation New oxygen to maintain adequate saturations. Patient's baseline oxygen is 2 liters. SCDs to bilateral lower extremity for DVT prophylaxis Recheck CBC and BMP tomorrow morning to follow blood counts, renal function and electrolytes Patient does request to be a DO NOT RESUSCITATE and this orders written Discharge medical care will return to PCP in [place], [place] <Thong Knowles - Last Filed: 12/16/16 17:22> History of Present Illness Date: 12/16/16 [facility] Patient Stated Medical History Cataracts Yes: no surgery as to date Dental Problems Yes: dentures- uppers Hearing Loss Yes Cardiac Arrhythmia Yes: tachy Bronchitis Yes Pneumonia Yes Hx Urinary Tract Infection Yes: chronic Shingles Yes: 1980 maybe Depression Yes: mot according to pt Post Menopausal Yes Clinic Medical History Community acquired pneumonia (Acute Medical) Failure of outpatient treatment (Acute Medical) Exam Vital Signs: Temperature 98.8 F 12/16/16 16:00 Pulse Rate 77 12/16/16 16:00 Respiratory Rate 20 12/16/16 16:00 Blood Pressure 138/59 12/16/16 16:00 Pulse Oximetry 91 12/16/16 16:00 Height/Weight/BMI: Height 1.52 m Weight 74.4 kg Body Mass Index 32.0 Results - Labs CBC & Chem 7: 12/16/16 12:44 12/16/16 12:44 Microbiology Results: Microbiology 12/16/16 16:14 Sputum, Expectorated Gram Stain - Final 12/16/16 16:14 Sputum, Expectorated Sputum Culture - Preliminary Culture Initiated - Results Pending Assessment and Plan (1) Community acquired pneumonia Current visit: Yes Status: Acute (2) Failure of outpatient treatment Current visit: Yes Status: Acute Assessment and Plan: Impression Community acquired pneumonia Acute hypercapnic/hypoxic respiratory failure 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 Chart reviewed. Case discussed with ED provider and my PROCUREMENT SERVICES MANAGER. Care plan developed with my supervision; agree with above. Finished course of antibiotics for URI on Wednesday12/14/16. While coming home, started to have increasing cough and congestion. This morning, cough up a significant amount of sputum. Progressively more SOA. Slight chest wall discomfort from cough. Chest feels full. No f/c. Appetite decreased. No n/v. Denies lower ext edema. Lungs: decreased bilaterally, little air movement CV: regular MSE: awake alert appropriate Plan: Inpatient admission for treatment of pneumonia failing outpatient treatment. Anticipate greater than 2 midnights of care needed. Levofloxacin for pulmonary coverage (recently completed course of cephalexin). Neb treatments of DuoNeb and budesonide. Acapella and Mucinex DM for mucolytic effect. Supplemental O2 - chronically uses 2L. Low flow IVF. Check ECHO due to pulm HTN on CTA. Monitor lab. Will need PT/OT to help increase functional status once respiratory status stabilizes. DNR as per her requests. Hospital Course Summary Disclaimer: The visit summary below is not to be considered part of the above Progress Note.
[2016-12-16 16:23] VITALS: BMI 32.0
[2016-12-16] MEDS: 1/2 NS 1,000 ML IV SCH (16:44)
[2016-12-16] MEDS: GUAIFENESIN/D-METHORPHAN 600mg/30mg TABLET PO SCH ×2 (16:46→20:29)
[2016-12-16] MEDS: LEVOFLOXACIN PB 500 MG/100 ML BAG IV SCH (16:46)
[2016-12-16] MEDS ORDERED: ALBUTEROL/IPRATROPIUM 2.5mg-0.5mg/3ml NEB AEROSOL SCH (17:00)
[2016-12-16] MEDS: ALBUTEROL/IPRATROPIUM 2.5mg-0.5mg/3ml NEB AEROSOL SCH ×2 (17:02→20:46)
[2016-12-16] MEDS: HYDROCODONE/APAP 10 MG/325 MG TABLET PO PRN (19:14)
[2016-12-16] MEDS: BUDESONIDE INH.SOLN 0.5mg/2ml NEB AEROSOL SCH (20:46)
[2016-12-17] MEDS: LEVOTHYROXINE 150 MCG TABLET PO SCH (06:24)
[2016-12-17] MEDS: 1/2 NS 1,000 ML IV SCH (06:47)
[2016-12-17] MEDS: ALBUTEROL/IPRATROPIUM 2.5mg-0.5mg/3ml NEB AEROSOL SCH ×4 (07:24→19:18)
[2016-12-17] MEDS: BUDESONIDE INH.SOLN 0.5mg/2ml NEB AEROSOL SCH ×2 (07:24→19:18)
[2016-12-17] MEDS: GUAIFENESIN/D-METHORPHAN 600mg/30mg TABLET PO SCH ×2 (08:39→20:22)
[2016-12-17] MEDS: HYDROCODONE/APAP 10 MG/325 MG TABLET PO PRN ×3 (08:42→23:39)
--- NOTE | 2016-12-17 10:44 | Progress Note ---
- Date 12/17/16 Subjective: F/U: Pneumonia, Acute hypercapnic/hypoxic respiratory failure Doing a little better today-feels breathing improving. Mobilizing sputum. Denies chest wall pain or pain with breathing. Slight nausea this am, but settled down after at breakfast. No ab pain. No f/c. Feels up to trying to work with PT/OT this afternoon-knows she need her strength to improve. Objective Vital signs: Temperature 98.4 F 12/17/16 08:10 Pulse Rate 79 12/17/16 08:10 Respiratory Rate 20 12/17/16 08:10 Blood Pressure 127/59 12/17/16 08:10 Pulse Oximetry 92 12/17/16 10:08 Height/Weight/BMI: Height 1.52 m Weight 74.7 kg Body Mass Index 32.0 - Constitutional Present: well nourished, well developed, obese, cooperative - Routine HEENT Exam Head: Present: normocephalic, atraumatic Eye: Present: EOMI, PERRL ENT: Present: mucous membranes moist - Routine Respiratory Exam Present: decreased breath sounds, diminished air movement (But improving from yesterday-less coarse. ). Absent: respiratory distress - Routine Cardiovascular Exam Present: RRR, no murmur - Routine Abdominal Exam Present: soft, normoactive bowel sounds, non distended, non tender - Routine Extremities Exam Present: non tender, pulses intact. Absent: cyanosis, clubbing Comments: SCD in place - Routine Skin Exam Present: dry, warm - Routine Neurological Exam Present: alert, oriented X3, CN II-XII intact, moving all extremities, vision grossly intact, hearing grossly intact. Absent: motor deficit, altered mental status - Routine Psychiatric Exam Present: normal affect, normal thought process, cooperative, good insight, good judgment. 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 Continue Neb treatments of DuoNeb and Budesonide. Continue Mucinex DM and acapella to help decrease secretions. Decrease IV to 50 cc/hr. PT/OT to see this afternoon to help improve strength and abilities. Recheck CXR in am secondary to pneumonia. Will recheck CBC due to pneumonia and BMP secondary to IVF. Case discussed with CM. Time spent with patient care 25 minutes. DVT Prophylaxis: SCD's Resuscitation Status: Do Not Resuscitate Hospital Course Summary Disclaimer: The visit summary below is not to be considered part of the above Progress Note. 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 Knowles for acne acquired pneumonia, failed outpatient treatment, increased oxygen demands. Patient completed a ten-day course of Keflex. She was given 1 gram of IV Rocephin in the emergency room. We will continue with IV Levaquin for antimicrobial coverage. Blood cultures are pending, will obtain a sputum culture. Given increased sputum production. Initial venous lactate was normal at 0.8. We will repeat these as per sepsis protocol. 1/2 NS at 75ml/hr for gentle hydration given hyponatremia- POA. DuoNeb breathing treatments 4 times a day, and a cappella. Medications reviewed. Will continue Cardizem, [place] and levothyroxine. At this time, will hold off on Lasix as patient is mildly dehydrated. Monitor cardiac telemetry given history of atrial fibrillation. New oxygen to maintain adequate saturations. Patient's baseline oxygen is 2 liters. SCDs to bilateral lower extremity for DVT prophylaxis. Recheck CBC and BMP tomorrow morning to follow blood counts, renal function and electrolytes. Patient does request to be a DO NOT RESUSCITATE and this orders written. Discharge medical care will return to PCP in [place], [place]. 12/17/16 Improving gradually. Breathing easier. Needing between 3-4L O2 (Baseline 2L). Sodium normalized. WBC normal. Continue levofloxacin for antimicrobial coverage of pulmonary pathogens. Continue Neb treatments of DuoNeb and Budesonide. Continue Mucinex DM and acapella to help decrease secretions. Decrease IV to 50 cc/hr. ECHO pending - pulm HTN noted on CTA at admission. PT/OT to see this afternoon to help improve strength and abilities. Recheck CXR in am secondary to pneumonia. Will recheck CBC due to pneumonia and BMP secondary to IVF.
[2016-12-17] MEDS ORDERED: INFLUENZA VAC High Dose 2017-18 (Fluzone HD*) (>=65yo) 0.5ml IM ONE (14:25)
[2016-12-17] MEDS: LEVOFLOXACIN PB 500 MG/100 ML BAG IV SCH (14:43)
[2016-12-18] MEDS: 1/2 NS 1,000 ML IV SCH ×2 (01:42→14:11)
[2016-12-18] MEDS: ALBUTEROL/IPRATROPIUM 2.5mg-0.5mg/3ml NEB AEROSOL SCH ×4 (06:57→19:46)
[2016-12-18] MEDS: BUDESONIDE INH.SOLN 0.5mg/2ml NEB AEROSOL SCH ×2 (06:57→19:46)
[2016-12-18] MEDS: LEVOTHYROXINE 150 MCG TABLET PO SCH (07:16)
[2016-12-18] MEDS: HYDROCODONE/APAP 10 MG/325 MG TABLET PO PRN ×2 (08:54→15:43)
[2016-12-18] MEDS: GUAIFENESIN/D-METHORPHAN 600mg/30mg TABLET PO SCH ×2 (08:54→20:52)
--- NOTE | 2016-12-18 13:33 | XRay Report ---
INDICATION: Pneumonia PROCEDURE: CHEST 2-VIEWS UPRIGHT (PA & LAT) Encounter: Initial COMPARISON: December 16, 2016 CT FINDINGS: Left upper lobe airspace consolidation is again noted without significant change. New airspace consolidation in the right middle and lower lobes with a new small right effusion. Small left effusion also present. No pneumothorax. Heart size and mediastinal contours are grossly stable allowing for the rotation and scoliosis. Impression: New right-sided airspace disease could represent peribronchial spread of pneumonia or aspiration. New small effusions. .
[2016-12-18] MEDS ORDERED: FUROSEMIDE 40 MG/4 ML INJECTION IVP ONE (13:47)
--- NOTE | 2016-12-18 15:26 | Progress Note ---
- Date 12/18/16 Subjective: F/U: Pneumonia, Acute hypercapnic/hypoxic respiratory failure Feeling more SOA, congested and full to the chest this am. O2 needs increased. Notes cough. No pain as she breaths. Denies palpitation. Reports appetite good and eating well-no nausea or ab pain. Stools moving. No f/c. Objective Vital signs: Temperature 97.7 F 12/18/16 08:43 Pulse Rate 96 12/18/16 08:43 Respiratory Rate 18 12/18/16 14:57 Blood Pressure 132/76 12/18/16 08:43 Pulse Oximetry 90 12/18/16 14:57 Height/Weight/BMI: Height 1.52 m Weight 75.1 kg Body Mass Index 32.0 - Constitutional Present: well nourished, well developed, obese, cooperative - Routine HEENT Exam Head: Present: normocephalic, atraumatic Eye: Present: EOMI, PERRL ENT: Present: mucous membranes moist - Routine Respiratory Exam Present: decreased breath sounds, crackles (Faint ), distant breath sounds, diminished air movement - Routine Cardiovascular Exam Present: RRR, no murmur - Routine Abdominal Exam Present: soft, normoactive bowel sounds, non distended, non tender - Routine Extremities Exam Present: cyanosis, clubbing, no edema, pulses intact Comments: SCD in place - Routine Musculoskeletal Exam Musculoskeletal: Present: no clubbing or cyanosis, normal strength - Routine Skin Exam Present: intact, dry, warm - Routine Neurological Exam Present: alert, oriented X3, CN II-XII intact, moving all extremities, vision grossly intact, hearing grossly intact. Absent: motor deficit, altered mental status - Routine Psychiatric Exam Present: normal affect, normal thought process, cooperative Results - Labs CBC & Chem 7: 12/18/16 04:23 12/18/16 04:23 Microbiology Results: Microbiology 12/16/16 16:14 Sputum, Expectorated Gram Stain - Final 12/16/16 16:14 Sputum, Expectorated Sputum Culture - Final Normal Respiratory Elizabeth Assessment and Plan (1) Community acquired pneumonia Current visit: Yes Status: Acute (2) Failure of outpatient treatment Current visit: Yes Status: Acute Assessment and Plan: Impression Community acquired pneumonia Acute hypercapnic/hypoxic respiratory failure 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 Lasix 40mg IV given due to crackles. Continue levofloxacin for antimicrobial coverage of pulmonary pathogens. Monitor lab. Case discussed with CM. Time spent with patient care 25 minutes. DVT Prophylaxis: SCD's Resuscitation Status: Do Not Resuscitate Hospital Course Summary Disclaimer: The visit summary below is not to be considered part of the above Progress Note. 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 Knowles for acne acquired pneumonia, failed outpatient treatment, increased oxygen demands. Patient completed a ten-day course of Keflex. She was given 1 gram of IV Rocephin in the emergency room. We will continue with IV Levaquin for antimicrobial coverage. Blood cultures are pending, will obtain a sputum culture. Given increased sputum production. Initial venous lactate was normal at 0.8. We will repeat these as per sepsis protocol. 1/2 NS at 75ml/hr for gentle hydration given hyponatremia- POA. DuoNeb breathing treatments 4 times a day, and a cappella. Medications reviewed. Will continue Cardizem, [place] and levothyroxine. At this time, will hold off on Lasix as patient is mildly dehydrated. Monitor cardiac telemetry given history of atrial fibrillation. New oxygen to maintain adequate saturations. Patient's baseline oxygen is 2 liters. SCDs to bilateral lower extremity for DVT prophylaxis. Recheck CBC and BMP tomorrow morning to follow blood counts, renal function and electrolytes. Patient does request to be a DO NOT RESUSCITATE and this orders written. Discharge medical care will return to PCP in [place], [place]. 12/17/16 Improving gradually. Breathing easier. Needing between 3-4L O2 (Baseline 2L). Sodium normalized. WBC normal. Continue levofloxacin for antimicrobial coverage of pulmonary pathogens. Continue Neb treatments of DuoNeb and Budesonide. Continue Mucinex DM and acapella to help decrease secretions. Decrease IV to 50 cc/hr. ECHO pending - pulm HTN noted on CTA at admission. PT/OT to see this afternoon to help improve strength and abilities. Recheck CXR in am secondary to pneumonia. Will recheck CBC due to pneumonia and BMP secondary to IVF. 12/18/16 Discontinue IVF - weight with trend up and patient feeling more chest congestion. Lasix 40mg IV given due to crackles. Continue levofloxacin for antimicrobial coverage of pulmonary pathogens.
[2016-12-18] MEDS: LEVOFLOXACIN PB 500 MG/100 ML BAG IV SCH (15:44)
[2016-12-19] MEDS: HYDROCODONE/APAP 10 MG/325 MG TABLET PO PRN ×3 (02:03→20:44)
[2016-12-19] MEDS: LEVOTHYROXINE 150 MCG TABLET PO SCH (06:46)
[2016-12-19] MEDS: ALBUTEROL/IPRATROPIUM 2.5mg-0.5mg/3ml NEB AEROSOL SCH ×4 (06:53→19:08)
[2016-12-19] MEDS: BUDESONIDE INH.SOLN 0.5mg/2ml NEB AEROSOL SCH ×2 (06:53→19:08)
[2016-12-19] MEDS: GUAIFENESIN/D-METHORPHAN 600mg/30mg TABLET PO SCH ×2 (08:42→20:44)
[2016-12-19] MEDS ORDERED: acetaZOLAMIDE 250 MG TABLET PO ONE ×2 (12:23→18:30)
[2016-12-19] MEDS ORDERED: FUROSEMIDE 20 MG/2 ML INJECTION IVP ONE (13:11)
--- NOTE | 2016-12-19 13:15 | Progress Note ---
- Date 12/19/16 Subjective: F/U: Pneumonia, Acute hypercapnic/hypoxic respiratory failure Rough morning-increased cough and congestion. Feeling a little better this afternoon. Breathing did get easier after Lasix yesterday. No pain with breathing. Not having palpitation or chest discomfort. No mouth pain. Eating well-no nausea or ab pain. Stools stable. Urinating well. Strength fair. No f/ c. Not reporting sinus congestion or pressure. Objective Vital signs: Temperature 97.7 F 12/19/16 07:14 Pulse Rate 71 12/19/16 09:40 Respiratory Rate 18 12/19/16 10:54 Blood Pressure 130/58 12/19/16 07:14 Pulse Oximetry 93 12/19/16 10:54 Height/Weight/BMI: Height 1.52 m Weight 75.4 kg Body Mass Index 32.0 - Constitutional Present: well nourished, well developed, obese, cooperative. Absent: somnolent - Routine HEENT Exam Head: Present: normocephalic, atraumatic Eye: Present: EOMI, PERRL ENT: Present: mucous membranes moist (No thursh ) - Routine Respiratory Exam Present: decreased breath sounds, prolonged expiratory phase, crackles, distant breath sounds, diminished air movement - Routine Cardiovascular Exam Present: RRR, no murmur - Routine Abdominal Exam Present: soft, normoactive bowel sounds, non distended, non tender - Routine Extremities Exam Present: cyanosis, clubbing, no edema, pulses intact Comments: SCD in place - Routine Musculoskeletal Exam Musculoskeletal: Present: no clubbing or cyanosis, normal strength - Routine Skin Exam Present: dry, warm - Routine Neurological Exam Present: alert, oriented X3, CN II-XII intact, moving all extremities, vision grossly intact, hearing grossly intact ([place]), normal speech. Absent: motor deficit, altered mental status, facial asymmetry - Routine Psychiatric Exam Present: normal affect, normal thought process, cooperative, good insight. 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 Oral potassium 10mEq x1. Diamox 500mg x2 (6 hours apart) today as CO2 with slight increase. O2 needs still above baseline. Continue levofloxacin for antimicrobial coverage of pulmonary pathogens. Nursing to ambulate TID to help strength. Monitor lab. DVT Prophylaxis: SCD's Resuscitation Status: Do Not Resuscitate - Time spent with patient Time with patient PN: 25 minutes Hospital Course Summary Disclaimer: The visit summary below is not to be considered part of the above Progress Note. 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 Knowles for acne acquired pneumonia, failed outpatient treatment, increased oxygen demands. Patient completed a ten-day course of Keflex. She was given 1 gram of IV Rocephin in the emergency room. We will continue with IV Levaquin for antimicrobial coverage. Blood cultures are pending, will obtain a sputum culture. Given increased sputum production. Initial venous lactate was normal at 0.8. We will repeat these as per sepsis protocol. 1/2 NS at 75ml/hr for gentle hydration given hyponatremia- POA. DuoNeb breathing treatments 4 times a day, and a cappella. Medications reviewed. Will continue Cardizem, [place] and levothyroxine. At this time, will hold off on Lasix as patient is mildly dehydrated. Monitor cardiac telemetry given history of atrial fibrillation. New oxygen to maintain adequate saturations. Patient's baseline oxygen is 2 liters. SCDs to bilateral lower extremity for DVT prophylaxis. Recheck CBC and BMP tomorrow morning to follow blood counts, renal function and electrolytes. Patient does request to be a DO NOT RESUSCITATE and this orders written. Discharge medical care will return to PCP in [place], [place]. 12/17/16 Improving gradually. Breathing easier. Needing between 3-4L O2 (Baseline 2L). Sodium normalized. WBC normal. Continue levofloxacin for antimicrobial coverage of pulmonary pathogens. Continue Neb treatments of DuoNeb and Budesonide. Continue Mucinex DM and acapella to help decrease secretions. Decrease IV to 50 cc/hr. ECHO pending - pulm HTN noted on CTA at admission. PT/OT to see this afternoon to help improve strength and abilities. Recheck CXR in am secondary to pneumonia. Will recheck CBC due to pneumonia and BMP secondary to IVF. 12/18/16 Discontinue IVF - weight with trend up and patient feeling more chest congestion. Lasix 40mg IV given due to crackles. Continue levofloxacin for antimicrobial coverage of pulmonary pathogens. 12/19/16 Will repeat Lasix 20mg to help motivate fluid. Oral potassium 10mEq x1. Diamox 500mg x2 (6 hours apart) today as CO2 with slight increase. O2 needs still above baseline. Continue levofloxacin for antimicrobial coverage of pulmonary pathogens. Nursing to ambulate TID to help strength.
[2016-12-19] MEDS: SALINE FLUSH 10ml SYRINGE IVF PRN ×3 (14:00→20:46)
[2016-12-19] MEDS: LEVOFLOXACIN PB 500 MG/100 ML BAG IV SCH (15:45)
[2016-12-20] MEDS: LEVOTHYROXINE 150 MCG TABLET PO SCH (06:05)
[2016-12-20] MEDS: HYDROCODONE/APAP 10 MG/325 MG TABLET PO PRN (06:12)
[2016-12-20] MEDS: ALBUTEROL/IPRATROPIUM 2.5mg-0.5mg/3ml NEB AEROSOL SCH ×4 (08:38→19:10)
[2016-12-20] MEDS: BUDESONIDE INH.SOLN 0.5mg/2ml NEB AEROSOL SCH ×2 (08:39→19:10)
[2016-12-20] MEDS: SALINE FLUSH 10ml SYRINGE IVF PRN ×3 (09:13→21:17)
[2016-12-20] MEDS: GUAIFENESIN/D-METHORPHAN 600mg/30mg TABLET PO SCH ×2 (09:13→21:10)
[2016-12-20] MEDS ORDERED: acetaZOLAMIDE 250 MG TABLET PO ONE ×2 (09:19→16:00)
--- NOTE | 2016-12-20 11:41 | Progress Note ---
<Magy Palacios V - Last Filed: 12/20/16 11:38> - Date 12/20/16 Subjective: Mrs Thurman is seen today while resting in bed. She appears tired with mild respirtaory distress. She states that she feels "worn out". Continues to require 6 liters of oxygen with tachypnea at 28 per minute. Denies pain currently on exam. Intake is good as she ate 100% of breakfast. Objective Vital signs: Temperature 97.2 F 12/20/16 08:09 Pulse Rate 92 12/20/16 08:09 Respiratory Rate 24 12/20/16 08:39 Blood Pressure 118/43 12/20/16 08:09 Pulse Oximetry 91 12/20/16 08:39 Height/Weight/BMI: Height 1.52 m Weight 74.9 kg Body Mass Index 32.0 - Constitutional Present: mild distress, well nourished, well developed - Routine HEENT Exam Eye: Present: EOMI ENT: Present: mucous membranes moist, dentition normal - Routine Respiratory Exam Present: wheezes Comments: course breath sounds posteriorly bilaterally - Routine Cardiovascular Exam Present: RRR, S1, S2. Absent: murmur - Routine Abdominal Exam Present: soft, normoactive bowel sounds, non distended. Absent: tenderness - Routine Extremities Exam Present: normal capillary refill - Routine Skin Exam Present: intact, dry, warm - Routine Neurological Exam Present: alert, oriented X3, CN II-XII intact - Routine Lymphatic Exam Lymphatic: Absent: adenopathy - Routine Psychiatric Exam Present: normal affect, cooperative Results - Labs CBC & Chem 7: 12/20/16 03:59 12/20/16 03:59 Microbiology Results: Microbiology 12/16/16 16:14 Sputum, Expectorated Gram Stain - Final 12/16/16 16:14 Sputum, Expectorated Sputum Culture - Final Normal Respiratory Elizabeth Assessment and Plan (1) Community acquired pneumonia Current visit: Yes Status: Acute (2) Failure of outpatient treatment Current visit: Yes Status: Acute Assessment and Plan: Impression Community acquired pneumonia Acute hypercapnic/hypoxic respiratory failure 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 May require another dose later in the day. Continues to require 6 liters of oxygen. Chronic baseline is 2 Scheduled nebs treatments Levaquin daily for antimicrobial coverage [place] labs, CO slightly decreased this morning. Case discussed with attending Dr Knowles Hospital Course Summary Disclaimer: The visit summary below is not to be considered part of the above Progress Note. 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 Knowles for acne acquired pneumonia, failed outpatient treatment, increased oxygen demands. Patient completed a ten-day course of Keflex. She was given 1 gram of IV Rocephin in the emergency room. We will continue with IV Levaquin for antimicrobial coverage. Blood cultures are pending, will obtain a sputum culture. Given increased sputum production. Initial venous lactate was normal at 0.8. We will repeat these as per sepsis protocol. 1/2 NS at 75ml/hr for gentle hydration given hyponatremia- POA. DuoNeb breathing treatments 4 times a day, and a cappella. Medications reviewed. Will continue Cardizem, [place] and levothyroxine. At this time, will hold off on Lasix as patient is mildly dehydrated. Monitor cardiac telemetry given history of atrial fibrillation. New oxygen to maintain adequate saturations. Patient's baseline oxygen is 2 liters. SCDs to bilateral lower extremity for DVT prophylaxis. Recheck CBC and BMP tomorrow morning to follow blood counts, renal function and electrolytes. Patient does request to be a DO NOT RESUSCITATE and this orders written. Discharge medical care will return to PCP in [place], [place]. 12/17/16 Improving gradually. Breathing easier. Needing between 3-4L O2 (Baseline 2L). Sodium normalized. WBC normal. Continue levofloxacin for antimicrobial coverage of pulmonary pathogens. Continue Neb treatments of DuoNeb and Budesonide. Continue Mucinex DM and acapella to help decrease secretions. Decrease IV to 50 cc/hr. ECHO pending - pulm HTN noted on CTA at admission. PT/OT to see this afternoon to help improve strength and abilities. Recheck CXR in am secondary to pneumonia. Will recheck CBC due to pneumonia and BMP secondary to IVF. 12/18/16 Discontinue IVF - weight with trend up and patient feeling more chest congestion. Lasix 40mg IV given due to crackles. Continue levofloxacin for antimicrobial coverage of pulmonary pathogens. 12/19/16 Will repeat Lasix 20mg to help motivate fluid. Oral potassium 10mEq x1. Diamox 500mg x2 (6 hours apart) today as CO2 with slight increase. O2 needs still above baseline. Continue levofloxacin for antimicrobial coverage of pulmonary pathogens. Nursing to ambulate TID to help strength. 12/20/16 - Plan She was given Diamox x1 this morning. May require another dose later in the day. Continues to require 6 liters of oxygen. Chronic baseline is 2, Scheduled nebs treatments. Levaquin daily for antimicrobial coverage. [place] labs, CO slightly decreased this morning. <Thong Knowles D - Last Filed: 12/20/16 17:15> - Date 12/20/16 Objective Vital signs: Temperature 99.0 F 12/20/16 15:20 Pulse Rate 89 12/20/16 15:20 Respiratory Rate 16 12/20/16 15:20 Blood Pressure 126/80 12/20/16 15:20 Pulse Oximetry 87 L 12/20/16 15:34 Height/Weight/BMI: Height 1.52 m Weight 74.9 kg Body Mass Index 32.0 Results - Labs CBC & Chem 7: 12/20/16 03:59 12/20/16 03:59 Microbiology Results: Microbiology 12/16/16 16:14 Sputum, Expectorated Gram Stain - Final 12/16/16 16:14 Sputum, Expectorated Sputum Culture - Final Normal Respiratory Elizabeth Assessment and Plan (1) Community acquired pneumonia Current visit: Yes Status: Acute (2) Failure of outpatient treatment Current visit: Yes Status: Acute Assessment and Plan: Impression Community acquired pneumonia Acute hypercapnic/hypoxic respiratory failure 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 Chart reviewed. Case discussed with my PROCUREMENT ACCOUNTANT. Care plan developed with my supervision; agree with above. Very tired today (I came by twice before this afternoon and she was sleeping soundly). Reports slept okay last night. Just feeling very tired, sleepy, and weak. Not having increased cough of congestion. No pain with breathing. Appetite stable. No ab pain. Lungs: decreased bilaterally, no wheezes, rare crackle. No distress with O2. CV: regular EXT: no edema MSE: awake alert Plan: Nursing to try to wean O2. Encourage pt on deep breathing. Concern with increased O2 flow her CO2 could increase and cause the sedation. Encourage activities as able-nursing is to ambulate her TID to help strength. 2 doses of Diamox given today. Recheck CXR and lab in am. Hospital Course Summary Disclaimer: The visit summary below is not to be considered part of the above Progress Note.
[2016-12-20] MEDS: LEVOFLOXACIN PB 500 MG/100 ML BAG IV SCH (15:27)
[2016-12-21] MEDS: HYDROCODONE/APAP 10 MG/325 MG TABLET PO PRN ×3 (02:11→21:59)
[2016-12-21] MEDS: LEVOTHYROXINE 150 MCG TABLET PO SCH (06:35)
[2016-12-21] MEDS: ALBUTEROL/IPRATROPIUM 2.5mg-0.5mg/3ml NEB AEROSOL SCH ×4 (07:17→18:27)
[2016-12-21] MEDS: BUDESONIDE INH.SOLN 0.5mg/2ml NEB AEROSOL SCH ×2 (07:17→18:27)
[2016-12-21] MEDS: GUAIFENESIN/D-METHORPHAN 600mg/30mg TABLET PO SCH ×2 (09:18→20:36)
[2016-12-21] MEDS ORDERED: FUROSEMIDE 20 MG/2 ML INJECTION IVP ONE (09:53)
--- NOTE | 2016-12-21 10:21 | Progress Note ---
<Maribell Nguyen D - Last Filed: 12/21/16 10:18> - Date 12/21/16 Subjective: Britta was resting in bed; she was just up and walked to/from the bathroom. She mostly complains of feeling very tired. She had some back pain earlier, but it' s not too bad at the moment. No abd pain or GI complaints. Last BM 12/18. Objective Vital signs: Temperature 96.6 F L 12/21/16 07:46 Pulse Rate 83 12/21/16 07:46 Respiratory Rate 18 12/21/16 07:46 Blood Pressure 126/53 12/21/16 07:46 Pulse Oximetry 90 12/21/16 07:46 Height/Weight/BMI: Height 1.52 m Weight 74.6 kg Body Mass Index 32.0 - Constitutional Present: no acute distress, well nourished, well developed - Routine HEENT Exam Head: Present: normocephalic ENT: Present: mucous membranes moist, oropharynx clear - Routine Respiratory Exam Present: rales (right lower) - Routine Cardiovascular Exam Present: RRR, S1, S2 - Routine Abdominal Exam Present: soft, normoactive bowel sounds, non distended, non tender - Routine Extremities Exam Present: edema (trace BLE) - Routine Musculoskeletal Exam Musculoskeletal: Present: other (severe scoliosis) - Routine Skin Exam Present: intact, dry, warm - Routine Neurological Exam Present: alert, oriented X3, normal speech. Absent: facial asymmetry - Routine Psychiatric Exam Present: normal affect, normal thought process, cooperative Results - Labs CBC & Chem 7: 12/21/16 04:23 12/21/16 04:23 Microbiology Results: Microbiology 12/16/16 16:14 Sputum, Expectorated Gram Stain - Final 12/16/16 16:14 Sputum, Expectorated Sputum Culture - Final Normal Respiratory Elizabeth Assessment and Plan (1) Community acquired pneumonia Current visit: Yes Status: Acute (2) Failure of outpatient treatment Current visit: Yes Status: Acute Assessment and Plan: Impression Community acquired pneumonia Acute hypercapnic/hypoxic respiratory failure 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 Weight trending down. Lasix 20 mg IV x1 this am. O2 needs - down to 5L. Continue Levaquin for CAP; continue nebs. Consider pulm consult. Labs - microcytic anemia, stable. Check iron studies. No leukocytosis. Hospital Course Summary Disclaimer: The visit summary below is not to be considered part of the above Progress Note. 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 Knowles for acne acquired pneumonia, failed outpatient treatment, increased oxygen demands. Patient completed a ten-day course of Keflex. She was given 1 gram of IV Rocephin in the emergency room. We will continue with IV Levaquin for antimicrobial coverage. Blood cultures are pending, will obtain a sputum culture. Given increased sputum production. Initial venous lactate was normal at 0.8. We will repeat these as per sepsis protocol. 1/2 NS at 75ml/hr for gentle hydration given hyponatremia- POA. DuoNeb breathing treatments 4 times a day, and a cappella. Medications reviewed. Will continue Cardizem, [place] and levothyroxine. At this time, will hold off on Lasix as patient is mildly dehydrated. Monitor cardiac telemetry given history of atrial fibrillation. New oxygen to maintain adequate saturations. Patient's baseline oxygen is 2 liters. SCDs to bilateral lower extremity for DVT prophylaxis. Recheck CBC and BMP tomorrow morning to follow blood counts, renal function and electrolytes. Patient does request to be a DO NOT RESUSCITATE and this orders written. Discharge medical care will return to PCP in [place], [place]. 12/17/16 Improving gradually. Breathing easier. Needing between 3-4L O2 (Baseline 2L). Sodium normalized. WBC normal. Continue levofloxacin for antimicrobial coverage of pulmonary pathogens. Continue Neb treatments of DuoNeb and Budesonide. Continue Mucinex DM and acapella to help decrease secretions. Decrease IV to 50 cc/hr. ECHO pending - pulm HTN noted on CTA at admission. PT/OT to see this afternoon to help improve strength and abilities. Recheck CXR in am secondary to pneumonia. Will recheck CBC due to pneumonia and BMP secondary to IVF. 12/18/16 Discontinue IVF - weight with trend up and patient feeling more chest congestion. Lasix 40mg IV given due to crackles. Continue levofloxacin for antimicrobial coverage of pulmonary pathogens. 12/19/16 Will repeat Lasix 20mg to help motivate fluid. Oral potassium 10mEq x1. Diamox 500mg x2 (6 hours apart) today as CO2 with slight increase. O2 needs still above baseline. Continue levofloxacin for antimicrobial coverage of pulmonary pathogens. Nursing to ambulate TID to help strength. 12/20/16 - Plan She was given Diamox x1 this morning. May require another dose later in the day. Continues to require 6 liters of oxygen. Chronic baseline is 2, Scheduled nebs treatments. Levaquin daily for antimicrobial coverage. Montior labs, CO slightly decreased this morning. 12/21/16 CO2 improved to 35 after 2 doses of Diamox yesterday. Weight trending down. Lasix 20 mg IV x1 this am. O2 needs - down to 5L. Continue Levaquin for CAP; continue nebs. Consider pulm consult. Labs - microcytic anemia, stable. Check iron studies. No leukocytosis. <Thong Knowles D - Last Filed: 12/21/16 14:15> - Date 12/21/16 Objective Vital signs: Temperature 96.6 F L 12/21/16 07:46 Pulse Rate 90 12/21/16 08:00 Respiratory Rate 20 12/21/16 11:20 Blood Pressure 126/53 12/21/16 07:46 Pulse Oximetry 94 12/21/16 11:20 Height/Weight/BMI: Height 1.52 m Weight 74.6 kg Body Mass Index 32.0 Results - Labs CBC & Chem 7: 12/21/16 04:23 12/21/16 04:23 Microbiology Results: Microbiology 12/16/16 16:14 Sputum, Expectorated Gram Stain - Final 12/16/16 16:14 Sputum, Expectorated Sputum Culture - Final Normal Respiratory Elizabeth - ABG Interpretation ABG results: 12/21/16 13:20 ABG pH 7.150 L* ABG pCO2 108 H* ABG pO2 102 H ABG HCO3 38 H ABG Total CO2 40.9 H ABG O2 Saturation 96.0 ABG Base Excess 5.3 H Assessment and Plan (1) Community acquired pneumonia Current visit: Yes Status: Acute (2) Failure of outpatient treatment Current visit: Yes Status: Acute Assessment and Plan: Impression Community acquired pneumonia Acute hypercapnic/hypoxic respiratory failure 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 Chart reviewed. Case discussed with CM, RT, Nursing, patient's daughter, and my INSURANCE SERVICE REPRESENTATIVE. Care plan developed with my supervision; agree with above. Still feels very sleepy and tired. Hard to do much and be active. Repeat ABG done showing increased pCO2 to 105. Lungs: decreased bilaterally. No wheezes CV: regular EXT: trace edema Plan: Will start BiPAP to help blow off CO2. With patient's hypercapnic respiratory failure will likely requirer residential home BiPAP - consult with Dr Scott placed this am towards this end. Will continue with Levaquin for antimicrobial coverage of pulmonary pathogens. Encourage activities as patient can tolerate. TSH checked secondary to fatigue and normal. DVT Prophylaxis: SCD's Resuscitation Status: Do Not Resuscitate - Time spent with patient Time with patient PN: 25 minutes Hospital Course Summary Disclaimer: The visit summary below is not to be considered part of the above Progress Note.
--- NOTE | 2016-12-21 13:06 | XRay Report ---
LOCATION OF DICTATION: [facility] EXAM: XR chest 2V HISTORY: f/u COMPARISON: December 18, 2016 FINDINGS: Small residual right pleural effusion with subjacent airspace opacities suspicious for infectious pneumonia or aspiration pneumonia. Continued follow-up is recommended. The left lung remains relatively clear. The heart size is stable. There is significant S-type scoliosis of the thoracolumbar spine. There is significant S-type scoliosis of the thoracolumbar spine. IMPRESSION: Persistent airspace opacities within the right mid and lower lung zone likely reflecting residual infectious or aspiration pneumonia and continued follow-up is recommended. Stable small residual right pleural effusion. .
[2016-12-21] MEDS: LEVOFLOXACIN PB 500 MG/100 ML BAG IV SCH ×2 (15:33→20:05)
[2016-12-21] MEDS: SALINE FLUSH 10ml SYRINGE IVF PRN ×2 (15:35→20:06)
[2016-12-21] MEDS ORDERED: NS FLUSH BAG 500ml IV PRN (20:07)
[2016-12-21] MEDS ORDERED: SALINE FLUSH *Sterile* 10 ML SYRINGE IV ONE (20:11)
[2016-12-22] MEDS: HYDROCODONE/APAP 10 MG/325 MG TABLET PO PRN ×2 (04:11→19:05)
[2016-12-22] MEDS: SALINE FLUSH 10ml SYRINGE IVF PRN ×2 (04:45→21:29)
[2016-12-22] MEDS: LEVOTHYROXINE 150 MCG TABLET PO SCH (06:36)
[2016-12-22] MEDS: BUDESONIDE INH.SOLN 0.5mg/2ml NEB AEROSOL SCH ×2 (06:47→21:53)
[2016-12-22] MEDS: ALBUTEROL/IPRATROPIUM 2.5mg-0.5mg/3ml NEB AEROSOL SCH ×4 (06:48→21:53)
--- NOTE | 2016-12-22 08:11 | XRay Report ---
Indication: CENTRAL LINE PLACEMENT PROCEDURE: XR chest 1V: Encounter: Initial Comparison: December 21, 2016 Findings: Right internal jugular approach central venous line is in place with the tip projecting over the right atrium. No pneumothorax. Right lower lobe airspace consolidation has improved. Some motion artifact. Cardiomediastinal contours are grossly stable with extreme scoliosis. Impression: New right IJ line tip projects over the right atrium. .
--- NOTE | 2016-12-22 08:31 | Procedure Note ---
DATE OF PROCEDURE 12/21/2016 DIAGNOSES BEFORE PROCEDURE Community-acquired pneumonia. DIAGNOSIS AFTER PROCEDURE Community-acquired pneumonia. PROCEDURE Insertion of right internal jugular multilumen central venous catheter. SURGEON Dr. Juarez ANESTHESIA Local DESCRIPTION OF OPERATION The patient was placed in her bed in the endoscopy room. The patient was placed in Trendelenburg position. She was kept in her hospital bed. The right side of the neck, right supraclavicular area, right infraclavicular area, right shoulder, suprasternal notch area, left side of the neck, left supraclavicular area, left infraclavicular area and left shoulder were all prepped with ChloraPrep solution. Sterile drapes were placed. An ultrasound device was used to examine the right internal jugular vein and right carotid artery. Skin at a percutaneous venipuncture site at the right side of the neck was infiltrated with 1% Xylocaine without epinephrine to provide local anesthesia. A small incision was made at this area. Percutaneous venipuncture of the right internal jugular vein was then performed with ultrasound guidance. The vein was easily entered and there was a good return of dark red nonpulsatile blood. A flexible guidewire was passed through the needle and through the internal jugular vein down into the superior vena cava. A 7-Chadian, triple-lumen, 20 cm long, radiopaque, polyurethane, multilumen, central venous catheter was flushed with heparinized saline solution. The multilumen central venous catheter was inserted into the right internal jugular vein and down into the superior vena cava with the Seldinger technique. A Biopatch antimicrobial dressing was placed around the multilumen central venous catheter at the skin entrance site. The multilumen central venous catheter was secured to the skin adjacent to the catheter insertion site with 3-0 silk sutures. A sterile field was maintained. The position of the patient was changed from Trendelenburg position to a sitting position. A portable upright chest x-ray was performed. This chest x-ray was reviewed. The chest x-ray appeared to show the multilumen central venous catheter inserted farther into the heart than would be optimal. A sterile field continued to be maintained at this time. The 3-0 silk stitches which had been placed to secure the multilumen central venous catheter to the skin were removed. The multilumen central venous catheter was withdrawn a short distance. The Biopatch antimicrobial dressing was again placed around the multilumen central venous catheter at the skin entrance site. The multilumen central venous catheter was again secured to the skin adjacent to the catheter insertion site with 3-0 silk sutures. Another portable upright chest x-ray was performed. This second portable upright chest x-ray was reviewed. The position of the catheter now appeared to be improved. The multilumen central venous catheter was thought to be in an acceptable position at this time. There was no evidence of any pneumothorax. A Tegaderm dressing was applied to the multilumen central venous catheter site. Sterile technique was maintained throughout the procedure. The patient did appear to tolerate the procedure well. YOEL
[2016-12-22] MEDS: GUAIFENESIN/D-METHORPHAN 600mg/30mg TABLET PO SCH ×2 (10:02→21:28)
--- NOTE | 2016-12-22 15:20 | Progress Note ---
<Anamarai Adkins Vicki - Last Filed: 12/22/16 15:17> - Date 12/22/16 Subjective: Britta is seen today in follow up for her hypercapnic respiratory failure and CAP. She is seen while resting in bed and arouses easily to voice and touch stimuli. She reports that she is feeling a little better today and admits to a continued, productive cough which she also feels like is improving. She states that her appetite is good but she has not had a BM in 3 days, though that is not unusual for her. Labs results from 12/21 were reviewed with her. She has been able to wean down to her baseline of 3L oxygen via nasal canula but admits to feeling more short of breath when it goes below 3L. Repeat CXR was obtained on 12/21 and revealed persistent airspace opacities within the right mid and lower lung zone likely reflecting residual infectious or aspiration pneumonia as well as a stable, small right pleural effusion. She expresses concern about her slow improvement. Objective Vital signs: Temperature 98.0 F 12/22/16 12:00 Pulse Rate 85 12/22/16 12:00 Respiratory Rate 20 12/22/16 12:00 Blood Pressure 128/65 12/22/16 12:00 Pulse Oximetry 94 12/22/16 12:00 Height/Weight/BMI: Height 5 ft Weight 164 lb 7.437 oz Body Mass Index 32.0 - Constitutional Present: no acute distress, well nourished, well developed, obese, cooperative Comments: Patient resting in bed and arouses easily; alert and orientated x 3; audible wheezing noted initially which cleared with cough. - Routine HEENT Exam Head: Present: normocephalic, atraumatic Eye: Present: PERRL. Absent: conjunctival icterus ENT: Present: mucous membranes dry Comments: nasal canula present at 3L. - Routine Respiratory Exam Present: decreased breath sounds, prolonged expiratory phase, diminished air movement - Routine Cardiovascular Exam Present: RRR, S1, S2 - Routine Abdominal Exam Present: soft, normoactive bowel sounds, non tender Comments: obese. - Routine Extremities Exam Present: edema (trace), pulses intact Comments: SCDs in place bilaterally. - Routine Back/Spine/Pelvis Exam Back/Spine: Absent: vertebral tenderness, warmth - Routine Musculoskeletal Exam Musculoskeletal: Present: moving extremities well - Routine Skin Exam Present: dry, warm. Absent: jaundice Comments: afebrile - Routine Neurological Exam Present: alert, oriented X3, moving all extremities, normal speech - Routine Psychiatric Exam Present: cooperative Results - Labs CBC & Chem 7: 12/21/16 04:23 12/22/16 04:41 Microbiology Results: Microbiology 12/16/16 16:14 Sputum, Expectorated Gram Stain - Final 12/16/16 16:14 Sputum, Expectorated Sputum Culture - Final Normal Respiratory Elizabeth - ABG Interpretation ABG results: 12/21/16 13:20 ABG pH 7.150 L* ABG pCO2 108 H* ABG pO2 102 H ABG HCO3 38 H ABG Total CO2 40.9 H ABG O2 Saturation 96.0 ABG Base Excess 5.3 H Assessment and Plan (1) Community acquired pneumonia Current visit: Yes Status: Acute (2) Failure of outpatient treatment Current visit: Yes Status: Acute Assessment and Plan: Impression Community acquired pneumonia Acute hypercapnic/hypoxic respiratory failure 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 Repeat CXR on 12/21 revealed persistent airspace opacities within the right mid and lower lung zone likely reflecting residual infectious or aspiration pneumonia as well as a stable, small right pleural effusion. Patient has been on Levaquin since 12/16/16. Oxygen supplementation at baseline of 3L. Discussed with Dr. Feng and will discontinue Levaquin. Continue to monitor respiratory function closely. Continue DuoNeb treatments as well as Mucinex for mucolytic effect. BiPAP was initiated on 12/21 to help mobilize CO2 and anticipated to be needed custodial given the patients chronic respiratory status. Dr. Scott has been consulted and awaiting his recommendations. Appreciate his time and expertise. BMP today revealed continued improvement of CO2. Iron study results pending. Will recheck CBC and BMP in AM to monitor blood counts, electrolytes and renal function. Weight remains stable. Continue to encourage activities as patient can tolerate. Will consult PT/OT for additional recommendations for strengthening and improvement in functional abilities given the patient is hopeful to return to her home where she lives alone upon discharge. DVT Prophylaxis: SCD's Resuscitation Status: Do Not Resuscitate - Time spent with patient Time with patient PN: 35 minutes Hospital Course Summary Disclaimer: The visit summary below is not to be considered part of the above Progress Note. 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 Knowles for acne acquired pneumonia, failed outpatient treatment, increased oxygen demands. Patient completed a ten-day course of Keflex. She was given 1 gram of IV Rocephin in the emergency room. We will continue with IV Levaquin for antimicrobial coverage. Blood cultures are pending, will obtain a sputum culture. Given increased sputum production. Initial venous lactate was normal at 0.8. We will repeat these as per sepsis protocol. 1/2 NS at 75ml/hr for gentle hydration given hyponatremia- POA. DuoNeb breathing treatments 4 times a day, and a cappella. Medications reviewed. Will continue Cardizem, [place] and levothyroxine. At this time, will hold off on Lasix as patient is mildly dehydrated. Monitor cardiac telemetry given history of atrial fibrillation. New oxygen to maintain adequate saturations. Patient's baseline oxygen is 2 liters. SCDs to bilateral lower extremity for DVT prophylaxis. Recheck CBC and BMP tomorrow morning to follow blood counts, renal function and electrolytes. Patient does request to be a DO NOT RESUSCITATE and this orders written. Discharge medical care will return to PCP in [place], [place]. 12/17/16 Improving gradually. Breathing easier. Needing between 3-4L O2 (Baseline 2L). Sodium normalized. WBC normal. Continue levofloxacin for antimicrobial coverage of pulmonary pathogens. Continue Neb treatments of DuoNeb and Budesonide. Continue Mucinex DM and acapella to help decrease secretions. Decrease IV to 50 cc/hr. ECHO pending - pulm HTN noted on CTA at admission. PT/OT to see this afternoon to help improve strength and abilities. Recheck CXR in am secondary to pneumonia. Will recheck CBC due to pneumonia and BMP secondary to IVF. 12/18/16 Discontinue IVF - weight with trend up and patient feeling more chest congestion. Lasix 40mg IV given due to crackles. Continue levofloxacin for antimicrobial coverage of pulmonary pathogens. 12/19/16 Will repeat Lasix 20mg to help motivate fluid. Oral potassium 10mEq x1. Diamox 500mg x2 (6 hours apart) today as CO2 with slight increase. O2 needs still above baseline. Continue levofloxacin for antimicrobial coverage of pulmonary pathogens. Nursing to ambulate TID to help strength. 12/20/16 - Plan She was given Diamox x1 this morning. May require another dose later in the day. Continues to require 6 liters of oxygen. Chronic baseline is 2, Scheduled nebs treatments. Levaquin daily for antimicrobial coverage. Montior labs, CO slightly decreased this morning. 12/21/16 CO2 improved to 35 after 2 doses of Diamox yesterday. Weight trending down. Lasix 20 mg IV x1 this am. O2 needs - down to 5L. Continue Levaquin for CAP; continue nebs. Consider pulm consult. Labs - microcytic anemia, stable. Check iron studies. No leukocytosis. Plan - 12/22/16: Patient reports feeling a little better today. Repeat CXR on 12/21 revealed persistent airspace opacities within the right mid and lower lung zone likely reflecting residual infectious or aspiration pneumonia as well as a stable, small right pleural effusion. Patient has been on Levaquin since 12/16/16. Oxygen supplementation at baseline of 3L. Discussed with Dr. Feng and will discontinue Levaquin. Continue to monitor respiratory function closely. Continue DuoNeb treatments as well as Mucinex for mucolytic effect. BiPAP was initiated on 12/21 to help mobilize CO2 and anticipated to be needed custodial given the patients chronic respiratory status. Dr. Scott has been consulted and awaiting his recommendations. Appreciate his time and expertise. BMP today revealed continued improvement of CO2. Iron study results pending. Will recheck CBC and BMP in AM to monitor blood counts, electrolytes and renal function. Weight remains stable. Continue to encourage activities as patient can tolerate. Will consult PT/OT for additional recommendations for strengthening and improvement in functional abilities given the patient is hopeful to return to her home where she lives alone upon discharge. <Janine Feng - Last Filed: 12/22/16 20:40> - Date 12/22/16 Objective Vital signs: Temperature 98.2 F 12/22/16 15:18 Pulse Rate 83 12/22/16 16:00 Respiratory Rate 20 12/22/16 15:27 Blood Pressure 134/65 12/22/16 15:18 Pulse Oximetry 95 12/22/16 15:18 Height/Weight/BMI: Height 1.52 m Weight 74.6 kg Body Mass Index 32.0 Results - Labs CBC & Chem 7: 12/21/16 04:23 12/22/16 04:41 Microbiology Results: Microbiology 12/16/16 16:14 Sputum, Expectorated Gram Stain - Final 12/16/16 16:14 Sputum, Expectorated Sputum Culture - Final Normal Respiratory Elizabeth - ABG Interpretation ABG results: 12/21/16 13:20 ABG pH 7.150 L* ABG pCO2 108 H* ABG pO2 102 H ABG HCO3 38 H ABG Total CO2 40.9 H ABG O2 Saturation 96.0 ABG Base Excess 5.3 H Assessment and Plan (1) Community acquired pneumonia Current visit: Yes Status: Acute (2) Failure of outpatient treatment Current visit: Yes Status: Acute Assessment and Plan: I have independently evaluated and examined this patient. I reviewed the chart, the patient's history, and the NDT INSPECTOR/PA's documented findings as above. We discussed and formulated the assessment and plan as above with additions as below: Mrs. Gonzalez reports persistent dyspnea and some cough although it's better than it was before. She was able to wear BiPAP all night although she didn't like it. She denies fevers or lightheadedness. Ambulation is limited both by dyspnea and by a bad knee which she's been advised she cannot have surgery for. The patient has moderate proptosis bilaterally but gaze is conjugate Respirations were nonlabored with diminished airflow bilaterally, breath sounds were slightly coarse posteriorly on the right without wheezing. Trace bilateral lower extremity edema. Chest x-ray reviewed by myself-persistent right mid and lower infiltrates present. Dr. Scott's input appreciated-patient has acute on chronic hypercapnic/ hypoxic respiratory failure and will benefit from ventilatory support at discharge. Tolerated BiPAP adequately last night; continue same and recheck ABG in a.m. Iron studies pending. Diuresed well yesterday, at baseline O2 need. Please correct above diagnoses to: 1) Acute/chronic hypercapnic and hypoxic respiratory failure and 2) Normocytic anemia Hospital Course Summary Disclaimer: The visit summary below is not to be considered part of the above Progress Note.
[2016-12-22] MEDS: LEVOFLOXACIN PB 500 MG/100 ML BAG IV SCH (15:42)
--- NOTE | 2016-12-22 17:21 | Pulmonology Consult Note ---
History of Present Illness Consult date: 12/22/16 Requesting physician: Thong Knowles Reason for consult: dyspnea History of present illness: Chief complaint: shortness of breath HPI: Patient is a 81-year-old female with kyphoscoliosis and chronic respiratory failure. She recently went on a trip to [facility] [place]. En route home her O2 battery on the POC and she was without oxygen. She said she became very short of breath and even after getting her O2 back on was still struggling. Therefore she came to the hospital. She is from the [facility] near [place]. Apparently the patient has recently completed a 10 day course of Keflex for upper respiratory infection. The patient was found to be hypoxic in the mid 80s on her baseline oxygen of 2 liters by nasal cannula. She was then directed to the emergency room for further acute evaluation and treatment. CBC was essentially normal with a WBC count 7.7, hemoglobin 10.3, 7% neutrophils. Sodium was found be elevated at 145, potassium 4.4, CO2 42, BUN 13 , creatinine 0.5. Troponin was negative, proBNP 354, venous lactate 0.8, pulse calcitonin 0.13. A d-dimer found to be elevated at 439. After being evaluated in the ED her ABG revealed pH of 7.38, pCO2 78, pO2 126, bicarbonate 46 on 5 liters of oxygen by nasal cannula. CT scan of the chest was performed revealing a right sided pneumonia, severe pulmonary artery hypertension. Severe cardiomegaly. No pulmonary emboli. Temperature on arrival 99.3, pulse in the 70s, patient is tachypneic at 28/min, she continues to be hypoxic requiring 4-5 liters of oxygen to maintain adequate saturations. Given her hypoxia, accompanied with failed outpatient, round of antibiotics and findings of pneumonia. I was asked to help evaluate the patient from a pulmonary viewpoint. Daughter states the patient gets very hypersomnolent at times. She wonders whether the patient's hypercapnia is the problem Review of Systems All systems PM: 10-point ROS was reviewed, no additional remarkable complaints except [facility] Medical History Chronic oxygen dependence History of atrial fibrillation Severe scoliosis History of thyroid cancer Surgical History: 4. Appendectomy. Tonsillectomy. Thyroidectomy. Right facial surgery posttraumatic Family History: Father- at age 85 from heart disease. Mother lived till 97 - Social History Smoking status: Never smoker Substance use type: does not use Alcohol intake frequency: does not drink Housing: house Current occupational status: retired Social history: [facility] Patient Stated Medical History Cataracts Yes: no surgery as to date Dental Problems Yes: dentures- uppers Hearing Loss Yes Cardiac Arrhythmia Yes: tachy Bronchitis Yes Pneumonia Yes Sleep Apnea Yes Hx Urinary Tract Infection Yes: chronic Shingles Yes: 1980 maybe Depression Yes: mot according to pt Post Menopausal Yes Clinic Medical History Community acquired pneumonia (Acute Medical) Failure of outpatient treatment (Acute Medical) Surgical History: 4. Appendectomy. Tonsillectomy. Thyroidectomy. Right facial surgery posttraumatic - Social History Current residence: Apartment/Private Home Medications Home Medications Medication Instructions Recorded Confirmed Type Furosemide [Lasix] 10 - 20 mg PO DAILY PRN 12/16/16 12/16/16 History Hydrocodone/APAP 10325 [Jones 1 tab PO Q6H PRN 12/16/16 12/16/16 History 10/325] Levothyroxine Sodium 150 mcg PO ACB 12/16/16 12/16/16 History dilTIAZem HCl [Diltiazem ER] 180 mg PO BID 12/16/16 12/16/16 History Allergies Allergy/AdvReac Type Severity Reaction Status Date / Time diphenhydramine Allergy Verified 12/16/16 12:16 [From Benadryl] erythromycin base Allergy Swelling Verified 12/16/16 12:16 of Lip/Tongue/Throat Penicillins Allergy Rash Verified 12/16/16 12:16 Tetracyclines Allergy Rash Verified 12/16/16 12:16 Exam Vital signs: Temperature 98.2 F 12/22/16 15:18 Pulse Rate 82 12/22/16 15:18 Respiratory Rate 20 12/22/16 15:27 Blood Pressure 134/65 12/22/16 15:18 Pulse Oximetry 95 12/22/16 15:18 - Constitutional no acute distress, somnolent - Routine HEENT Exam Head: Present: normocephalic, atraumatic ENT: Present: mucous membranes moist - Routine Neck Exam Present: supple, full ROM - Routine Respiratory Exam Present: decreased breath sounds, rales. Absent: accessory muscle use - Routine Cardiovascular Exam Present: RRR - Routine Abdominal Exam Present: soft. Absent: guarding - Routine Extremities Exam Absent: cyanosis, clubbing - Routine Neurological Exam Present: oriented X3 hard of hearing Results - Laboratory Findings CBC and BMP: 12/21/16 04:23 12/22/16 04:41 ABG ABG pH 7.150 (7.350-7.450) L* 12/21/16 13:20 ABG pCO2 108 MMHG (34-45) H* 12/21/16 13:20 ABG pO2 102 MMHG (80-100) H 12/21/16 13:20 ABG O2 Saturation 96.0 % (95.0-98.0) 12/21/16 13:20 PT/INR, D-dimer D-Dimer 439 NG/ML (0-230) H 12/16/16 12:44 Abnormal lab findings: Abnormal Labs 12/16/16 12/17/16 12/17/16 17:44 05:02 05:02 RBC 3.89 L Hgb 9.5 L Hct 33.6 L MCH 24.4 L MCHC 28.3 L Immature Gran % (Auto) Neut % (Auto) 76.5 H Lymph % (Auto) 12.2 L [place] % (Auto) 10.0 H Neut # (Auto) Lymph # (Auto) [place] # (Auto) Abs Immat Gran (auto) ABG pH ABG pCO2 ABG pO2 ABG HCO3 ABG Total CO2 ABG Base Excess Chloride Carbon Dioxide 40 H Anion Gap BUN Creatinine 0.5 L BUN/Creatinine Ratio Glucose Ur Specific [place] <=1.005 L 12/18/16 12/18/16 12/19/16 04:23 04:23 10:37 RBC 3.59 L 3.99 L Hgb 8.8 L 9.6 L Hct 31.0 L 34.4 L MCH 24.5 L 24.1 L MCHC 28.4 L 27.9 L Immature Gran % (Auto) Neut % (Auto) 72.5 H 78.4 H Lymph % (Auto) 14.5 L 10.8 L [place] % (Auto) 11.7 H 9.4 H Neut # (Auto) Lymph # (Auto) 0.9 L [place] # (Auto) 0.9 H Abs Immat Gran (auto) ABG pH ABG pCO2 ABG pO2 ABG HCO3 ABG Total CO2 ABG Base Excess Chloride Carbon Dioxide 40 H Anion Gap 1 L BUN Creatinine 0.5 L BUN/Creatinine Ratio Glucose Ur Specific [place] 12/19/16 12/20/16 12/20/16 10:37 03:59 03:59 RBC 3.97 L Hgb 9.6 L Hct 34.8 L MCH 24.2 L MCHC 27.6 L Immature Gran % (Auto) Neut % (Auto) 75.6 H Lymph % (Auto) 10.9 L [place] % (Auto) 12.3 H Neut # (Auto) Lymph # (Auto) [place] # (Auto) 1.2 H Abs Immat Gran (auto) ABG pH ABG pCO2 ABG pO2 ABG HCO3 ABG Total CO2 ABG Base Excess Chloride 94 L Carbon Dioxide 41 H* 38 H Anion Gap BUN Creatinine 0.5 L BUN/Creatinine Ratio Glucose 115 H Ur Specific [place] 12/21/16 12/21/16 12/21/16 04:23 04:23 13:20 RBC Hgb 9.6 L Hct 35.3 L MCH 23.9 L MCHC 27.2 L Immature Gran % (Auto) 1.2 H Neut % (Auto) 80.3 H Lymph % (Auto) 8.4 L [place] % (Auto) 9.9 H Neut # (Auto) 8.6 H Lymph # (Auto) 0.9 L [place] # (Auto) 1.1 H Abs Immat Gran (auto) 0.13 H ABG pH 7.150 L* ABG pCO2 108 H* ABG pO2 102 H ABG HCO3 38 H ABG Total CO2 40.9 H ABG Base Excess 5.3 H Chloride Carbon Dioxide 35 H Anion Gap 4 L BUN 18.0 H Creatinine 0.6 L BUN/Creatinine Ratio 30 H Glucose 120 H Ur Specific [place] 12/22/16 04:41 RBC Hgb Hct MCH MCHC Immature Gran % (Auto) Neut % (Auto) Lymph % (Auto) [place] % (Auto) Neut # (Auto) Lymph # (Auto) [place] # (Auto) Abs Immat Gran (auto) ABG pH ABG pCO2 ABG pO2 ABG HCO3 ABG Total CO2 ABG Base Excess Chloride Carbon Dioxide 33 H Anion Gap 4 L BUN 19.0 H Creatinine 0.6 L BUN/Creatinine Ratio 32 H Glucose Ur Specific [place] - Diagnostic Findings Chest x-ray: report reviewed CT scan - chest: report reviewed Assessment and Plan (1) Acute and chronic respiratory failure with hypercapnia Status: Acute Assessment and plan: PCO2 is 78. Patient has signs and symptoms of chornic hypercapnia. As a result she is high risk for recurrent hospitalization and acute respiratory failure. To reduce the risks we will order a home ventilator to mask and ask her to wear this with sleep and prn. Her current setting on NIPPV are IPAP 18, EPAP 5, Rate 15, and Fio2 35%. She is tolerating these well Current Visit: Yes (2) Pneumonia Status: Acute Assessment and plan: no obvious signs of aspiration. Likely impaired mucociliary clearance due to kyphoscoliosis. Mucus clearance devices such as therapy vest, acapell, may be helpful. Current Visit: Yes (3) Restrictive airway disease Status: Acute Assessment and plan: due to kyphoscoliosis. recommend outpatient PFT Current Visit: Yes - Time Spent With Patient Total time spent is greater than 50% in coordination of care (as documented) at patient's floor/unit and/or counseling patient: 25 - 35 minutes
[2016-12-22] MEDS: SENNA + DOCUSATE TABLET PO SCH (21:28)
[2016-12-23] MEDS: LEVOTHYROXINE 150 MCG TABLET PO SCH (06:28)
[2016-12-23] MEDS: ALBUTEROL/IPRATROPIUM 2.5mg-0.5mg/3ml NEB AEROSOL SCH ×4 (07:05→19:10)
[2016-12-23] MEDS: BUDESONIDE INH.SOLN 0.5mg/2ml NEB AEROSOL SCH ×2 (07:05→19:09)
[2016-12-23] MEDS: SENNA + DOCUSATE TABLET PO SCH ×2 (08:34→20:35)
[2016-12-23] MEDS: POLYETHYL GLYCOL 3350 17gm PACKET PO SCH (08:34)
[2016-12-23] MEDS: HYDROCODONE/APAP 10 MG/325 MG TABLET PO PRN ×2 (08:34→20:35)
[2016-12-23] MEDS: GUAIFENESIN/D-METHORPHAN 600mg/30mg TABLET PO SCH ×2 (08:34→20:35)
[2016-12-23] MEDS ORDERED: IRON - PHARMACY CONSULT MC ONE (08:55)
[2016-12-23] MEDS ORDERED: IRON DEXTRAN COMPLEX 100mg/2ml INJECTION IVP ONE (11:00)
--- NOTE | 2016-12-23 11:36 | Progress Note ---
<Magy Palacios V - Last Filed: 12/23/16 11:31> - Date 12/23/16 Subjective: Britta is seen today in follow up. She is sitting up on the side of the bed ordering lunch. She reports having nausea this morning that has been somewhat persistent however, she is going to eat. Feels that her breathing is mildly improved. Continue on 2 liters of oxygen. Weight consistent. Objective Vital signs: Temperature 98.4 F 12/23/16 11:15 Pulse Rate 92 12/23/16 11:15 Respiratory Rate 20 12/23/16 11:15 Blood Pressure 131/60 12/23/16 11:15 Pulse Oximetry 94 12/23/16 11:15 Height/Weight/BMI: Height 1.52 m Weight 74.9 kg Body Mass Index 32.0 - Constitutional Present: no acute distress, well nourished, well developed - Routine HEENT Exam Eye: Present: EOMI ENT: Present: mucous membranes moist, dentition normal - Routine Respiratory Exam Present: diminished air movement (bilateral bases). Absent: wheezes - Routine Cardiovascular Exam Present: RRR, S1, S2. Absent: murmur - Routine Abdominal Exam Present: soft, normoactive bowel sounds, non distended. Absent: tenderness - Routine Extremities Exam Present: normal capillary refill - Routine Skin Exam Present: dry, warm - Routine Neurological Exam Present: alert, oriented X3, CN II-XII intact - Routine Lymphatic Exam Lymphatic: Absent: adenopathy - Routine Psychiatric Exam Present: normal affect Results - Labs CBC & Chem 7: 12/23/16 04:40 12/23/16 04:40 Microbiology Results: Microbiology 12/16/16 16:14 Sputum, Expectorated Gram Stain - Final 12/16/16 16:14 Sputum, Expectorated Sputum Culture - Final Normal Respiratory Elizabeth - ABG Interpretation ABG results: 12/21/16 12/23/16 13:20 06:50 ABG pH 7.150 L* 7.340 L ABG pCO2 108 H* 71 H* ABG pO2 102 H 103 H ABG HCO3 38 H 38 H ABG Total CO2 40.9 H 40.5 H ABG O2 Saturation 96.0 98.0 ABG Base Excess 5.3 H 9.9 H Assessment and Plan (1) Community acquired pneumonia Current visit: Yes Status: Acute (2) Failure of outpatient treatment Current visit: Yes Status: Acute Assessment and Plan: Impression Acute/chronic hypercapnic and hypoxic respiratory failure Normocytic anemia CAP Restrictive lung disease secondary to scoliosis Failed outpatient treatment Hypernatremia- (POA) 145 Chronic oxygen dependence-2 liters Microcytic anemia Severe scoliosis Hx thyroid cancer Hx atrial fibrillation Obesity with BMI 32.0 Plan Appreciate pulmonary consultation. Recommends Home vent at time of discharge. Currently on baseline oxygen needs- 2L. ABG reviewed and CO2 continues to improve. Iron studies reviewed- Will replace Iron IV infusion today Encourage Zofran as needed for nausea Hgb stable at 8.8- will continue to monitor PT/OT evaluation as patient does reside independently Hospital Course Summary Disclaimer: The visit summary below is not to be considered part of the above Progress Note. 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 Knowles for acne acquired pneumonia, failed outpatient treatment, increased oxygen demands. Patient completed a ten-day course of Keflex. She was given 1 gram of IV Rocephin in the emergency room. We will continue with IV Levaquin for antimicrobial coverage. Blood cultures are pending, will obtain a sputum culture. Given increased sputum production. Initial venous lactate was normal at 0.8. We will repeat these as per sepsis protocol. 1/2 NS at 75ml/hr for gentle hydration given hyponatremia- POA. DuoNeb breathing treatments 4 times a day, and a cappella. Medications reviewed. Will continue Cardizem, Register and levothyroxine. At this time, will hold off on Lasix as patient is mildly dehydrated. Monitor cardiac telemetry given history of atrial fibrillation. New oxygen to maintain adequate saturations. Patient's baseline oxygen is 2 liters. SCDs to bilateral lower extremity for DVT prophylaxis. Recheck CBC and BMP tomorrow morning to follow blood counts, renal function and electrolytes. Patient does request to be a DO NOT RESUSCITATE and this orders written. Discharge medical care will return to PCP in [place], [place]. 12/17/16 Improving gradually. Breathing easier. Needing between 3-4L O2 (Baseline 2L). Sodium normalized. WBC normal. Continue levofloxacin for antimicrobial coverage of pulmonary pathogens. Continue Neb treatments of DuoNeb and Budesonide. Continue Mucinex DM and acapella to help decrease secretions. Decrease IV to 50 cc/hr. ECHO pending - pulm HTN noted on CTA at admission. PT/OT to see this afternoon to help improve strength and abilities. Recheck CXR in am secondary to pneumonia. Will recheck CBC due to pneumonia and BMP secondary to IVF. 12/18/16 Discontinue IVF - weight with trend up and patient feeling more chest congestion. Lasix 40mg IV given due to crackles. Continue levofloxacin for antimicrobial coverage of pulmonary pathogens. 12/19/16 Will repeat Lasix 20mg to help motivate fluid. Oral potassium 10mEq x1. Diamox 500mg x2 (6 hours apart) today as CO2 with slight increase. O2 needs still above baseline. Continue levofloxacin for antimicrobial coverage of pulmonary pathogens. Nursing to ambulate TID to help strength. 12/20/16 - Plan She was given Diamox x1 this morning. May require another dose later in the day. Continues to require 6 liters of oxygen. Chronic baseline is 2, Scheduled nebs treatments. Levaquin daily for antimicrobial coverage. Montior labs, CO slightly decreased this morning. 12/21/16 CO2 improved to 35 after 2 doses of Diamox yesterday. Weight trending down. Lasix 20 mg IV x1 this am. O2 needs - down to 5L. Continue Levaquin for CAP; continue nebs. Consider pulm consult. Labs - microcytic anemia, stable. Check iron studies. No leukocytosis. Plan - 12/22/16: Patient reports feeling a little better today. Repeat CXR on 12/21 revealed persistent airspace opacities within the right mid and lower lung zone likely reflecting residual infectious or aspiration pneumonia as well as a stable, small right pleural effusion. Patient has been on Levaquin since 12/16/16. Oxygen supplementation at baseline of 3L. Discussed with Dr. Feng and will discontinue Levaquin. Continue to monitor respiratory function closely. Continue DuoNeb treatments as well as Mucinex for mucolytic effect. BiPAP was initiated on 12/21 to help mobilize CO2 and anticipated to be needed long term care social worker given the patients chronic respiratory status. Dr. Scott has been consulted and awaiting his recommendations. Appreciate his time and expertise. BMP today revealed continued improvement of CO2. Iron study results pending. Will recheck CBC and BMP in AM to monitor blood counts, electrolytes and renal function. Weight remains stable. Continue to encourage activities as patient can tolerate. Will consult PT/OT for additional recommendations for strengthening and improvement in functional abilities given the patient is hopeful to return to her home where she lives alone upon discharge. 12/23/16- Plan Appreciate pulmonary consultation. Recommends Home vent at time of discharge. Currently on baseline oxygen needs- 2L. ABG reviewed and CO2 continues to improve. Iron studies reviewed- Will replace Iron IV infusion today Encourage Zofran as needed for nausea Hgb stable at 8.8- will continue to monitor PT/OT evaluation as patient does reside independently <Thong Knowles - Last Filed: 12/23/16 16:56> - Date 12/23/16 Objective Vital signs: Temperature 98.4 F 12/23/16 16:41 Pulse Rate 92 12/23/16 16:41 Respiratory Rate 20 12/23/16 16:41 Blood Pressure 146/65 H 12/23/16 16:41 Pulse Oximetry 95 12/23/16 16:41 Height/Weight/BMI: Height 1.52 m Weight 74.9 kg Body Mass Index 32.0 Results - Labs CBC & Chem 7: 12/23/16 04:40 12/23/16 04:40 Microbiology Results: Microbiology 12/16/16 16:14 Sputum, Expectorated Gram Stain - Final 12/16/16 16:14 Sputum, Expectorated Sputum Culture - Final Normal Respiratory Elizabeth - ABG Interpretation ABG results: 12/23/16 06:50 ABG pH 7.340 L ABG pCO2 71 H* ABG pO2 103 H ABG HCO3 38 H ABG Total CO2 40.5 H ABG O2 Saturation 98.0 ABG Base Excess 9.9 H Assessment and Plan (1) Community acquired pneumonia Current visit: Yes Status: Acute (2) Failure of outpatient treatment Current visit: Yes Status: Acute Assessment and Plan: Impression Acute/chronic hypercapnic and hypoxic respiratory failure Community Acquired Pneumonia Failed outpatient treatment Restrictive lung disease secondary to scoliosis Hypernatremia- (POA) 145 Chronic oxygen dependence-2 liters Normocytic anemia Iron deficiency - IV Iron infused 12/23/16 Severe scoliosis Hx thyroid cancer Hx atrial fibrillation Obesity with BMI 32.0 Have independently interviewed & examined pt. Chart reviewed. Case discussed with CM & my [employer]UT [employer]PER. Care plan developed with supervision; agree with above. Doing okay. Still some SOA and cough/congestion. Trying to get used to BiPAP. Eating well. Bowels moving. Reports out walking more. Lungs: decreased, little air movement. CV: regular MSE: awake alert Plan: Levaquin stopped - course completed. Pulm stopped Mucinex and added saline to Acapella. IV Iron infusion given due to iron deficiency. Encourage activities. Will recheck lab and CXR in am. Vent paperwork ready for pulm to sign. Hope for discharge in the near future. DVT Prophylaxis: SCD's Resuscitation Status: Do Not Resuscitate - Time spent with patient Time with patient PN: 25 minutes Hospital Course Summary Disclaimer: The visit summary below is not to be considered part of the above Progress Note.
[2016-12-23] MEDS ORDERED: IRON DEXTRAN IV ONE (12:00)
[2016-12-23] MEDS ORDERED: NS IV ONE (12:00)
--- NOTE | 2016-12-23 14:32 | Pulmonology Progress Note ---
Subjective Principal diagnosis: Respiratory Failure Interval history: Pt currently resting on 2L, wakes to voice and TORRES MARTINEZ. States she is doing ok, still with some cough and sputum but noted as thick and hard to get up. Exam Vital signs: Temperature 98.7 F 12/23/16 13:29 Pulse Rate 95 12/23/16 13:29 Respiratory Rate 20 12/23/16 13:29 Blood Pressure 137/68 12/23/16 13:29 Pulse Oximetry 95 12/23/16 13:29 - Constitutional no acute distress, obese - Routine HEENT Exam Head: Present: normocephalic, atraumatic Eye: Present: EOMI, PERRL - Routine Neck Exam Present: supple, full ROM - Routine Respiratory Exam Present: decreased breath sounds, rhonchi - Routine Cardiovascular Exam Present: RRR, no murmur - Routine Abdominal Exam Present: soft, normoactive bowel sounds - Routine Extremities Exam Present: non tender, full ROM - Routine Back/Spine/Pelvis Exam Back/Spine: Present: scoliosis, kyphosis - Routine Skin Exam Present: intact, dry - Routine Neurological Exam Present: alert, oriented X3, CN II-XII intact - Routine Psychiatric Exam Present: normal affect, normal thought process Assessment and Plan - Assessment and Plan Acute on chronic hypercapnic hypoxic respiratory failure Pneumonia - s/p levaquin Impaired mucociliary clearance Restrictive airway disease 2/2 Kyphoscoliosis Plan: Pt currently on home O2, [facility], using bipap here f15, 13 /5 and tolerating. ABG today 7., will need a home vent to mask for her chronic hypercapnic respiratory failure secondary to her restrictive airways disease from kyphoscoliosis. CXR still with infiltrates noted, will continue her current inhaled regimen of a/a QID and pulmicort BID. Likely with Impaired mucociliary clearance, will stop mucinex and add 3% with acapella device. Will continue to follow. - Time Spent With Patient Total time spent is greater than 50% in coordination of care (as documented) at patient's floor/unit and/or counseling patient: less than 15 minutes
[2016-12-23] MEDS: SODIUM CL 3% INHAL.SOLN 15ml NEB AEROSOL SCH ×2 (15:14→19:09)
[2016-12-23] MEDS: SALINE FLUSH 10ml SYRINGE IVF PRN (20:35)
[2016-12-24] MEDS: LEVOTHYROXINE 150 MCG TABLET PO SCH (06:50)
[2016-12-24] MEDS: ALBUTEROL/IPRATROPIUM 2.5mg-0.5mg/3ml NEB AEROSOL SCH ×2 (07:19→11:25)
[2016-12-24] MEDS: BUDESONIDE INH.SOLN 0.5mg/2ml NEB AEROSOL SCH (07:19)
--- NOTE | 2016-12-24 08:50 | XRay Report ---
INDICATION: F/U PROCEDURE: CHEST 2-VIEWS UPRIGHT (PA & LAT) Encounter: Initial COMPARISON: December 21, 2016 FINDINGS: Right IJ line in stable position. Continued improvement in right basilar airspace disease. No new infiltrates. No obvious pneumothorax or significant pleural effusion. Cardiomediastinal contours are difficult to evaluate due to the rotation and severe scoliosis present. Pulmonary vasculature is grossly stable. Impression: Improving right basilar pneumonia. .
[2016-12-24] MEDS: POLYETHYL GLYCOL 3350 17gm PACKET PO SCH (09:17)
[2016-12-24] MEDS: SENNA + DOCUSATE TABLET PO SCH (09:17)
[2016-12-24] MEDS: GUAIFENESIN/D-METHORPHAN 600mg/30mg TABLET PO SCH (09:18)
[2016-12-24] MEDS: HYDROCODONE/APAP 10 MG/325 MG TABLET PO PRN ×2 (09:32→15:35)
[2016-12-24 11:36] VITALS: RESP 18
[2016-12-24 11:48] VITALS: BP 135/63; TEMP 98.1
[2016-12-24 13:45] VITALS: PULSE 86; O2SAT 84
--- NOTE | 2016-12-24 14:50 | Discharge Summary ---
Discharge Information Date of admission: 12/16/16 14:42 Anticipated date of discharge: 12/24/16 Attending Physician: Janine Feng MD Consults: Consulting Provider: Reece Scott Reason For Exam: Restrictive lung disease/hypoxemia Consulting Provider: Jorge Jaurez Reason For Exam: CENTRAL LINE PLACEMENT - Discharge Diagnosis (1) Acute and chronic respiratory failure with hypercapnia Status: Acute (2) Community acquired pneumonia Status: Acute (3) Acute and chronic respiratory failure with hypoxia Status: Acute (4) Restrictive airway disease Status: Chronic Acute/chronic hypercapnic and hypoxic respiratory failure CAP 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 Right IJ central line placed 12/21/[address] Juarez. - Laboratory Labs: On admission white count was 7.7, hemoglobin 10.3, and platelet count 206,000. D -dimer 439. ABG 7.38/78/126/46 with FiO2 5 L. Admission chemistries notable only for sodium 145, bicarbonate 42, and BNP slightly elevated at 354. Additional studies obtained during the hospital course included TSH of 2.36 on 12/21. Serum iron 23, TIBC 380, iron saturation 6% on 12/21/16. 12/24/16 05:22 12/24/16 05:22 - Microbiology Microbiology 12/16/16 16:14 Sputum, Expectorated Gram Stain - few neutrophils, moderate gram-positive cocci in pairs, few gram-positive rods, few gram-negative rods 12/16/16 16:14 Sputum, Expectorated Sputum Culture - Final Normal Respiratory Elizabeth, heavy growth 12/16/16-blood cultures 2 negative after 5 days - Radiology Radiology: CTA of the chest on : Pulmonary arteries: The main pulmonary artery is markedly enlarged measuring over 4.2 cm in diameter compared to 3.5 cm in diameter for the adjacent aorta. The left and right main pulmonary arteries are severely enlarged as well as. Exam is diagnostic to the subsegmental pulmonary arterial level. No filling defects identified to suggest a pulmonary embolus. Impression: Significantly distorted anatomy due to severe rotoscoliosis of the thoracolumbar spine. There is consolidation within the left upper lobe containing air bronchograms. Minimal right basilar atelectasis also. No pneumothorax. Trace left effusion. Heart is enlarged without pericardial effusion. No axillary adenopathy. Large fat-containing lesion occupying the majority of the right breast measuring over 10.2 x 7.5 cm in diameter on sagittal image #110. Recommend correlation for any history of prior breast procedure. The upper abdomen shows a moderately distended gallbladder. No acute findings seen in the upper abdomen. Impression: 1. No pulmonary embolus. 2. Left upper lobe pneumonia or aspiration. 3. Severe pulmonary artery hypertension. 4. Large fatty mass in the right breast could represent a lipoma or hamartoma. 5. Severe cardiomegaly. Chest x-ray on 12/16/16 demonstrated left upper lobe consolidation and consolidation of the right middle and lower lobes with small right pleural effusion. Small left pleural effusion also present. Follow-up chest x-ray on 12/21 Leslie central line placement demonstrated no complications and the improvement in right lower lobe infiltrate. Final chest x-ray was obtained on the date of discharge (12/24/16) demonstrating continued improvement in the right basilar infiltrate and minor residual left upper lobe infiltrate. History of Present Illness HPI: Patient is a pleasant 81-year-old female who is visiting her family in [place], [place]. She is from the [place], [place] area near [place]. She recently took a trip to [place] and flew here yesterday. It is reported that patient has recently completed a 10 day course of Keflex for upper respiratory infection. She began to feel more short of breath this morning. This presenting to [facility] at which time patient was found to be hypoxic in the mid 80s on her baseline oxygen of 2 liters by nasal cannula. She was then directed to the emergency room for further acute evaluation and treatment. CBC was essentially normal with a WBC count 7.7, hemoglobin 10.3, 7% neutrophils. Sodium was found be elevated at 145, potassium 4.4, CO2 42, BUN 13, creatinine 0.5. Troponin was negative, proBNP 354, venous lactate 0.8, pulse calcitonin 0.13. A d-dimer found to be elevated at 439. ABG revealed pH of 7.38, pCO2 78, pO2 126, bicarbonate 46 on 5 liters of oxygen by nasal cannula. CT scan of the chest was performed revealing a left upper lobe pneumonia, severe pulmonary artery hypertension. Severe cardiomegaly. No pulmonary emboli. Temperature on arrival 99.3, pulse in the 70s, patient is tachypneic at 28/min, she continues to be hypoxic requiring 4-5 liters of oxygen to maintain adequate saturations. Given her hypoxia, accompanied with failed outpatient, round of antibiotics and findings of pneumonia. The hospitalist services were contacted and accepted patient for inpatient admission for further evaluation and treatment. It is expected that her stay will be greater than 2 overnights. Hospital Course This is a general summary of the patient's hospital course. For more details refer to the complete medical record. 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 Gonzalez was hospitalized as inpatient on 12/16/16 under the care of Dr. Knowles for acne acquired pneumonia, failed outpatient treatment, increased oxygen demands. Prior to hospitalization she had completed a 10 day course of cephalexin. She was started on Rocephin in the emergency room but was converted to Levaquin on admission and completed a one-week course of therapy during the hospitalization. She received DuoNeb breathing treatments 4 times a day, and acapella therapy to assist in mobilization of secretions. Supplemental oxygen was continued throughout the hospital course although higher flow oxygen was required on admission and slowly titrated back to patient's home flow of 2-3 L. Echocardiogram was obtained due to reported changes of pulmonary hypertension on CTA; formal report is pending at discharge although preliminary verbal report indicated no significant abnormalities by echo. The patient's respiratory status slowly but progressively improved initially. Diuretics were held on admission due to concern that she was dehydrated but on the third hospital day Lasix was given due to patient description of increased chest congestion. Lasix was repeated the following day with Diamox 2 as CO2 was climbing. Diamox was repeated again on 12/20 at which time patient reported increased fatigue. Blood gas the following morning demonstrated increased hypercarbia with respiratory acidosis (7.15/108/102/38 on 7 L per high flow cannula) prompting initiation of BiPAP. The patient was seen in consultation by Dr. Scott. He felt the patient had signs and symptoms of chronic hypercapnia and recommended home ventilator to mask to prevent risk of recurrent hospitalizations and acute respiratory failure. BiPAP was initiated during the hospitalization with subsequent blood gas demonstrating improvement in respiratory acidosis and return in hypercarbia to admission level. Pulmonary recommended initiation of 3% saline per nebulizer twice daily to help with mobilization of secretions. Due to prolonged hospitalization and generalized deconditioning in conjunction with chronic respiratory failure the patient felt she would benefit from further strengthening and correction was recommended. She was accepted to correction in [place] with transfer date 12/24/16. Additional problems encountered during the hospitalization were a normocytic anemia with iron studies demonstrating iron deficiency. She received IV iron therapy with 2 g iron dextran on 12/23/16 to replace the iron deficit. Follow-up CBC is recommended in approximately 4-5 days. Cardiac rhythm was stable throughout the hospitalization on home dose diltiazem and TSH was within normal range on home dose levothyroxine. The patient has had some intermittent nausea requiring Zofran and constipation has been present throughout the hospitalization although improved prior to discharge. Patient was felt stable for discharge to correction on 12/24/16. She reports some ongoing dyspnea at this time but minimal sputum production. She continues to have some mild nausea but no vomiting and described her appetite is so-so. Her primary concern was weakness and she felt she would benefit from rehabilitation before discharging home with her daughter area oxygen saturation was 96% on 3 L supplemental oxygen. The patient appeared fatigued but was in no acute distress. Respirations were nonlabored with diminished breath sounds throughout but breath sounds were clear. She has moderate proptosis bilaterally in cardiac rhythm is regular. There is no lower extremity edema. Continue BiPAP at night with inspiratory pressure 18, expiratory pressure 5, rate 15, FiO2 35%. Patient will be under the care of Dr. Gio Conde's while at correction and will subsequently return to the care of her primary care provider (Taylor Cantrell APRN in [facility]) if she returns to the [facility] ([place], [place]) or will require establishment with new PCP in the immediate area if she elects to stay with her daughter locally. She is asked to follow up with Dr. Scott in 2-3 weeks. Patient will require retesting to qualify for home ventilator prior to discharge from correction. Time spent with patient: discharge greater than 30 minutes Discharge Plan - Med Rec/Dispo Referrals/Follow Up: Reece Scott MD [Physician] - 2 Weeks (Call to schedule appointment in 2-3 weeks) Alli Instructions: Pneumonia (GEN) Prescriptions: New Acetaminophen [Tylenol] 650 mg PO Q5H PRN tablet PRN Reason: Discomfort Albuterol/Ipratropium [Duoneb] 3 ml AEROSOL RTQID neb Albuterol/Ipratropium [Duoneb] 3 ml AEROSOL Q4HR PRN neb PRN Reason: Shortness Of Air Guaifenesin/Dm [Mucinex Dm] 1 tab PO BID PRN tablet PRN Reason: Cough Menthol Cough Drops [Ricola Sf] 1 lozenge MM PRN PRN lozenge PRN Reason: Cough Milk of Magnesia [Mom] 30 ml PO DAILY PRN udc PRN Reason: Constipation PEG 3350 17gm PACKET [Miralax] 17 gm PO DAILY packet Sodium Cl 3% 15Ml Neb [Sodium Chloride 3% Inhal] 15 ml AEROSOL RTBID vial Budesonide Inhalation [Pulmicort Inhalation] 0.5 mg AEROSOL RTBID vial Ondansetron Tab [Zofran Po] 4 mg PO QID #10 tablet Senna + Docusate [Senna Plus Tablet] 1 tab PO BID tablet Continue dilTIAZem HCl [Diltiazem 24Hr ER] 180 mg PO BID Levothyroxine Sodium 150 mcg PO ACB Hydrocodone/APAP 10/325 [Courtland 10/325] 1 tab PO Q6H PRN #30 tab PRN Reason: Pain Discontinued Furosemide [Lasix] 10 - 20 mg PO DAILY PRN PRN Reason: Prn Orders - Disposition 03 To SNU Not [facility] (SNF) - Dismissal Complete Discharge Instructions are:: Complete
--- NOTE | 2016-12-24 15:33 | Extended Care Facility Orders ---
Admission Orders Admit to:: [facility] Allergies/Adverse Reactions: Allergies diphenhydramine [From Benadryl] Allergy (Verified 12/16/16 12:16) erythromycin base Allergy (Verified 12/16/16 12:16) Swelling of Lip/Tongue/Throat Penicillins Allergy (Verified 12/16/16 12:16) Rash Tetracyclines Allergy (Verified 12/16/16 12:16) Rash Admitting Diagnosis: pnemonia failing outpatient treatment Admitting Physician: MD Eleni Attending Physician: Janine Feng MD Code Status: Do Not Resuscitate Anticiapted Length of Stay: 30 days or less Rehab Potential: good Rehab Prognosis: good Diet: Regular May use Facility Protocol or Standing Orders: Yes May have flu vaccine: Yes Evaluations/Treatment: PT, OT, RT [facility] Certification: I certify that SNF services are required to be given on an Inpatient basis because of the patients need for residential care on a continuing basis for the condition(s) for which he/she received inpatient hospital services prior to his/her transfer to the SNF. SNF inpatient care is necessary for the following reasons Indication for [facility]: Teach Medication Management, Teach COPD Management, Other - Additional Information In Event of Arrest: Do Not Start CPR Resident is Aware of Diagnosis: Yes Laboratory/Radiology: CBC 12/28/16-diagnosis iron deficiency anemia BMP 12/28/16-diagnosis chronic respiratory failure with hypercarbia, hypertension Referrals: Reece Scott MD [Physician] - 2 Weeks (Call to schedule appointment in 2-3 weeks) Additional Orders: 3 L supplemental oxygen while awake, nocturnal BiPAP with settings 18/5, rate 15 FiO2 35%. Follow-up appointment with Dr. Scott in 2-3 weeks. Patient received 2 g iron dextran IV on 12/23 for correction of iron deficiency.
--- NOTE | 2016-12-24 15:44 | Echocardiogram ---
DATE 12/16/2016 INDICATION Dyspnea, pulmonary hypertension. TECHNICAL QUALITY: Technically good 2D, M-mode and Doppler echocardiographic images were submitted for interpretation. FINDINGS 1. CARDIAC CHAMBERS. All cardiac chamber measurements are normal. Aortic root diameter is normal. RV size and contractility appear normal. 2. LV FUNCTION. Wall thickness appears to be upper normal range. Septal wall thickness measures 10.5 mm, appeared slightly prominent. Posterior wall measured 9.8 mm. Wall motion analysis is normal. LV systolic function is normal and estimated about 55-60%. Mild diastolic dysfunction is suggested based on E/A ratio at 0.9 although slightly elevated flow velocity at the LVOT level (see comment below under Doppler). No significant septal hypertrophy, outflow tract obstruction or SENA appreciated. 3. VALVES. Aortic and mitral valves exhibit minimal sclerotic changes. Valve excursion is normal. Tricuspid valve structure and motion appear normal, normal valve excursion. 4. DOPPLER. Doppler shows trace regurgitation involving all four valves, none of hemodynamic significance. Flow velocity at the aortic valve level of 1.8 m/sec and at LVOT level of 1.5 m/sec are borderline to slightly increased at rest with normal early peaking flow morphology. 5. No evidence of pericardial effusion, intracardiac masses or demonstrable shunts. IMPRESSION 1. LV wall thickness upper normal range with normal systolic function, EF of 55 -60%. 2. Borderline elevated flow velocity at the LVOT and aortic valve without evidence of outflow tract obstruction at rest or aortic stenosis. 3. Normal systolic PA pressure estimated at 25 mmHg and high normal central venous pressure estimated at 10 mmHg. 4. No significant valvular dysfunction. MTDD
[2016-12-24] MEDS ORDERED: SODIUM CL 3% INHAL.SOLN 15ml NEB AEROSOL SCH (19:00)
== END 2016-12-24 15:45 | DRG 193 ==
LOC: ED 11:58 → MED 14:42 → SUATTDRO 14:42 → MED 15:51
PROVIDERS: ADMIT Hospitalist; ATTEND Internal Medicine